=== PATIENT | male | born 1955 | race Caucasian/White ===

== ENCOUNTER → 2021-03-19 10:39 | Outpatient (CLI) | payer OTHER, SELFPAY ==
[2021-03-19 11:08] LABS: Hematocrit 47.6 % (41-53); Hemoglobin 16.4 g/dL (13.5-17.5); Mean Corpuscular HGB Conc 34.5 % (30-36); Mean Corpuscular Hemoglobin 31.5 PG (26-34); Mean Corpuscular Volume 91.2 fL (80-100); Platelet Count 107 X10^3/uL (150-400); Red Blood Cell Count 5.22 X10^6/uL (4.5-5.9); Red Cell Distribution Width 12.8 % (11.6-14.8); White Blood Cell Count 5.5 X10^3/uL (4.5-11.0)
[2021-03-19 11:37] LABS: Vitamin D 25 Hydroxy (D3) 52.2 ng/mL (30.0-100.0)
[2021-03-19 13:20] LABS: BUN Creatinine Ratio 17.6 (6-22); Blood Urea Nitrogen 16 mg/dL (9-20); Calcium 9.3 mg/dL (8.4-10.2); Chloride 99 mmol/L (98-107); Estimated Glomerular Filt Rate > 60.0 mL/min (>60); Glucose 95 mg/dL (80-110); HEMOLYSIS < 15 (0-50); Potassium 4.5 mmol/L (3.4-5.1); Sodium 139 mmol/L (137-145)
[2021-03-19 13:21] LABS: Carbon Dioxide 32 mmol/L (22-32)
[2021-03-19 13:49] LABS: Prostate Specific Antigen 6.36 ng/mL (0.10-4.00)
== END ==
PROVIDERS: PCP Student in an Organized Health Care Education/Training Program; Referring Provider Student in an Organized Health Care Education/Training Program; Visit Provider Student in an Organized Health Care Education/Training Program
DX: D69.6 Thrombocytopenia, unspecified (principal); R97.20 Elevated prostate specific antigen [PSA]; E55.9 Vitamin D deficiency, unspecified; I10 Essential (primary) hypertension
CPT/HCPCS: 36415; 80048; 82306; 84153; 85027

== ENCOUNTER → 2021-05-01 10:46 | Outpatient (CLI) | payer MEDICARE, SELFPAY ==
[2021-05-01 11:32] LABS: Platelet Count 124 X10^3/uL (150-400)
[2021-05-02 10:10] LABS: PSA Free % 15.3 % (.); PSA, Total 6.4 ng/mL (0.0-4.0)
== END ==
PROVIDERS: PCP Student in an Organized Health Care Education/Training Program; Referring Provider Student in an Organized Health Care Education/Training Program; Visit Provider Student in an Organized Health Care Education/Training Program
DX: D69.6 Thrombocytopenia, unspecified (principal); R97.20 Elevated prostate specific antigen [PSA]
CPT/HCPCS: 36415; 84153; 84154; 85049

== ENCOUNTER → 2021-10-03 15:05 | Outpatient (CLI) | payer MEDICARE, SELFPAY ==
[2021-10-03 15:29] LABS: Hemoglobin 15.4 g/dL (13.5-17.5); Mean Corpuscular HGB Conc 34.9 % (30-36); Mean Corpuscular Hemoglobin 31.9 PG (26-34); Mean Corpuscular Volume 91.3 fL (80-100); Platelet Count 131 X10^3/uL (150-400); Red Blood Cell Count 4.82 X10^6/uL (4.5-5.9); Red Cell Distribution Width 12.9 % (11.6-14.8); White Blood Cell Count 6.8 X10^3/uL (4.5-11.0)
[2021-10-03 15:45] LABS: Blood Urea Nitrogen 18 mg/dL (9-20); Calcium 8.7 mg/dL (8.4-10.2); Carbon Dioxide 28 mmol/L (22-32); Chloride 101 mmol/L (98-107); Estimated Glomerular Filt Rate > 60 mL/min (>60); Glucose 95 mg/dL (80-110); HEMOLYSIS < 15 (0-50); Potassium 4.4 mmol/L (3.4-5.1); Sodium 137 mmol/L (137-145)
[2021-10-04 08:28] LABS: PSA Free % 13.4 % (.)
== END ==
PROVIDERS: PCP Student in an Organized Health Care Education/Training Program; Referring Provider Student in an Organized Health Care Education/Training Program; Visit Provider Student in an Organized Health Care Education/Training Program
DX: I10 Essential (primary) hypertension (principal); D69.6 Thrombocytopenia, unspecified; R97.20 Elevated prostate specific antigen [PSA]
CPT/HCPCS: 36415; 80048; 84153; 84154; 85027

== ENCOUNTER → 2022-06-07 11:49 | Outpatient (CLI) | payer MEDICARE, SELFPAY ==
--- NOTE | 2022-06-07 11:53 | DI.RAD.S_ITS ---
PROCEDURE: XR SHOULDER RT MIN 2V INDICATIONS: Pain in right shoulder TECHNIQUE: 3 views of the shoulder were acquired. COMPARISON: None. FINDINGS: Bones: No fractures or dislocations. No suspicious bony lesions. Visualized ribs appear intact. Degenerative changes are seen, with subacromial spurring Soft tissues: No suspicious soft tissue calcifications. The visualized lung demonstrates an unremarkable appearance. IMPRESSION: There are degenerative changes seen by plain film. If it would be helpful for clinical management decision making, please consider a dedicated, scheduled shoulder MRI for further evaluation (assuming that there is no contraindication). Dictated by: Thaddeus Estrada M.D. on 06/07/2022 at 11:04 Approved by: Thaddeus Estrada M.D. on 06/07/2022 at 11:05
== END ==
PROVIDERS: PCP Internal Medicine; Referring Provider Internal Medicine; Visit Provider Internal Medicine
DX: M25.511 Pain in right shoulder (principal)
CPT/HCPCS: 73030

== ENCOUNTER 2023-05-26 05:39 | Emergency (ER) | payer MEDICARE, SELFPAY ==
[2023-05-26 05:49] VITALS: BP 185/89; PULSE 79; RESP 19; TEMP 37.2; O2SAT 99; BMI 28.2
[2023-05-26 06:24] LABS: Add Manual Diff / Slide Review NO; Basophils Absolute Auto 100 /uL (0-100); Basophils Percent Auto 1.4 % (0-2); Eosinophils Absolute Auto 100 /uL (0-450); Hematocrit 44.6 % (41-53); Hemoglobin 15.5 g/dL (13.5-17.5); Lymphocytes Absolute Auto 1700 /uL (1100-4500); Lymphocytes Percent Auto 28.6 % (25-40); Mean Corpuscular HGB Conc 34.7 % (30-36); Mean Corpuscular Hemoglobin 30.8 PG (26-34); Mean Corpuscular Volume 88.8 fL (80-100); Monocytes Absolute Auto 600 /uL (0-900); Monocytes Percent Auto 9.9 % (3-14); Neutrophils Absolute Auto 3500 /uL (1500-7000); Neutrophils Percent Auto 58.1 % (50-75); Red Blood Cell Count 5.02 X10^6/uL (4.5-5.9); Red Cell Distribution Width 13.6 % (11.6-14.8)
[2023-05-26 06:33] LABS: INR 0.9 (0.9-1.3); Prothrombin Time 10.2 SECONDS (9.4-12.5)
[2023-05-26 06:35] LABS: PTT Partial Thromboplastin Tim 31 SECONDS (25.1-36.5)
[2023-05-26 06:37] LABS: Platelet Count 9 X10^3/uL (150-400)
[2023-05-26 06:38] LABS: Platelet Estimate Decreased on smear; RBC Morphology Normal Morphology
[2023-05-26 06:41] LABS: Alanine Aminotransferase 43 IU/L (<50); Albumin 4.7 g/dL (3.5-5.0); Albumin Globulin Ratio 1.6 (1.0-2.8); Alkaline Phosphatase 50 U/L (38-126); Aspartate Aminotransferase 38 IU/L (17-59); BUN Creatinine Ratio 20.6 (6-22); Bilirubin Total 0.8 mg/dL (0.2-1.3); Blood Urea Nitrogen 20 mg/dL (9-20); Calcium 9.8 mg/dL (8.4-10.2); Carbon Dioxide 23 mmol/L (22-32); Chloride 102 mmol/L (98-107); Estimated Glomerular Filt Rate > 60 mL/min (>60); Glucose 114 mg/dL (80-110); HEMOLYSIS < 15 (0-50); Potassium 4.6 mmol/L (3.4-5.1); Sodium 136 mmol/L (137-145); Total Protein 7.7 g/dL (6.3-8.2)
--- NOTE | 2023-05-26 07:27 | ED_ITS ---
HPI - Recheck/Abnormal Lab/Rx General Chief Complaint: Recheck/Abnormal Lab/Rx Stated Complaint: low platelets Time Seen by Provider: 05/26/23 05:56 Source: patient Mode of arrival: Ambulatory Limitations: no limitations History of Present Illness HPI narrative: This is a 67-year-old male with history of hypertension, dyslipidemia, thrombocytopenia with known CLL, had been stable with his platelets for several years. Patient states he does not currently follow up with Hematology/Oncologym last visit was in 2018 at [facility]. He does have his platelets checked every 3 months. They were checked yesterday and he got a call that is platelets were 7 from lab draw yesterday. Patient states no inappropriate bleeding or bruising that he is appreciated. No nosebleeds, no hematuria or dark urine, no black or bloody stools. Denies headache. Denies any other symptoms. Patient states he did receive rituximab infusions x4 around 2012. He has received platelets remotely in the past. Patient moved to the area from [place] and currently resides locally. No tobacco, 2 alcoholic drinks daily, no recreational drugs. Dr. Elma Lynne as his primary care. Related Data Previous Rx's Medication Instructions Recorded ketoconazole 2 % shampoo 1 applic topical 2XW #120 mL 03/19/21 doxycycline hyclate 50 mg capsule 50 mg PO DAILY #5 caps 05/22/21 lisinopril 20 mg tablet 20 mg PO DAILY #90 tabs 03/11/22 prednisone 20 mg tablet 60 mg (3 x 20 mg) PO DAILY 7 days 05/26/23 #21 tabs Allergies Allergy/AdvReac Type Severity Reaction Status Date / Time No Known Drug Allergies Allergy Unverified 03/19/21 09:39 Review of Systems Review of Systems ROS Unobtainable: All systems reviewed & are unremarkable except as noted in HPI and below Patient History Medical History Rosacea Right knee pain (~2016) Measles (~1959) Platelet disorder (~2011) Surgical History Anesthesia History of colonoscopy (~2019) Family History Father Cancer Mother Stroke Brother History of heart disease Social History Smoking Status: Never smoker Smoking Status: Never smoker alcohol intake frequency: 0-2 drinks per day Alcohol type: wine Substance Use Type: does not use Exam Narrative Exam Narrative: GENERAL: Alert and oriented x three, well-appearing male in no acute distress. HEENT: Head normocephalic, atraumatic, EOMI, pupils reactive, face symmetric, moist mucous membranes NECK: Supple, full range of motion CARDIOVASCULAR: Regular rate and rhythm without murmurs, rubs or gallops. RESPIRATORY: Breath sounds equal bilaterally, no wheezes rales or rhonchi. ABDOMEN: Soft, nontender. Normoactive bowel sounds all 4 quadrants. No guarding or rebound, rigidity, no mass : No CVA tenderness EXTREMITIES: Normal range of motion, no clubbing or edema. Neurovascularly intact NEUROLOGICAL: Cranial nerves II through XII grossly intact. Moving all extremities SKIN: Warm, dry, no petechiae, no rashes or lesions, no obvious ecchymosis. Initial Vital Signs Initial Vital Signs: Vital Signs Temperature 98.9 F 05/26/23 05:49 Pulse Rate 79 05/26/23 05:49 Respiratory Rate 19 05/26/23 05:49 Blood Pressure 185/89 H 05/26/23 05:49 Pulse Oximetry 99 05/26/23 05:49 Oxygen Delivery Method Room Air 05/26/23 05:49 Course Orders Ordered: Discontinued Medications Methylprednisolone (Methylprednisolone 125 Mg/2 Ml Vial) 125 mg IV NOW ONE Stop: 05/26/23 07:57 Last Admin: 05/26/23 08:02 Dose: 125 mg Documented By: ORAL Vital Signs Vital signs: Vital Signs - 8 hr 05/26/23 11:43 05/26/23 12:04 05/26/23 12:23 Temperature 99.0 F 99.0 F 98.8 F Pulse Rate 60 61 65 Respiratory Rate 18 20 18 Blood Pressure 185/85 H 166/83 H 174/82 H MDM - Recheck/Abnormal Lab/Rx Lab Data 05/26/23 06:06 05/26/23 06:06 Labs: Lab Results 05/26/23 Range/Units 06:06 WBC 6.0 (4.5-11.0) X10^3/uL RBC 5.02 (4.5-5.9) X10^6/uL Hgb 15.5 (13.5-17.5) g/dL Hct 44.6 (41-53) % MCV 88.8 (80-100) fL MCH 30.8 (26-34) PG MCHC 34.7 (30-36) % RDW 13.6 (11.6-14.8) % Plt Count 9 L* (150-400) X10^3/uL Neut % (Auto) 58.1 (50-75) % Lymph % (Auto) 28.6 (25-40) % Marin % (Auto) 9.9 (3-14) % Eos % (Auto) 2.0 (2-4) % Baso % (Auto) 1.4 (0-2) % Neut # (Auto) 3500 (7156-8058) /uL Lymph # (Auto) 1700 (4397-7581) /uL Marin # (Auto) 600 (0-900) /uL Eos # (Auto) 100 (0-450) /uL Baso # (Auto) 100 (0-100) /uL Platelet Estimate Decreased on smear RBC Morphology Normal morphology PT 10.2 (9.4-12.5) SECONDS INR 0.9 (0.9-1.3) APTT 31 (25.1-36.5) SECONDS Sodium 136 L (137-145) mmol/L Potassium 4.6 (3.4-5.1) mmol/L Chloride 102 (98-107) mmol/L Carbon Dioxide 23 (22-32) mmol/L BUN 20 (9-20) mg/dL Creatinine 0.97 (0.66-1.25) mg/dL Estimated GFR > 60 (>60) mL/min BUN/Creatinine Ratio 20.6 (6-22) Glucose 114 H (80-110) mg/dL Calcium 9.8 (8.4-10.2) mg/dL Total Bilirubin 0.8 (0.2-1.3) mg/dL AST 38 (17-59) IU/L ALT 43 (<50) IU/L Alkaline Phosphatase 50 (38-126) U/L Total Protein 7.7 (6.3-8.2) g/dL Albumin 4.7 (3.5-5.0) g/dL Globulin 3.0 (1.7-4.1) g/dL Albumin/Globulin Ratio 1.6 (1.0-2.8) Blood Type O Positive Antibody Screen Negative Imaging Data CT scan - head: Radiologist's Impression: Sergio Byrne??67??M??1955 ? Allergy/Adv: No Known Drug Allergies Close Head CT (Signed) Krunal Bang - 05/26/23 Shoulder X-Ray (Signed) Thaddeus Estrada - 06/07/22 [place] [address] CT Scan Report Signed Patient: Sergio Byrne MR#: [id number] : 1955 Acct:[id number] Age/Sex: 67 / M Date of Service: 05/26/23 Loc: ED Accession Number: [id number] Procedure: CT head/brain wo con Ordering Provider: Echo Campa D.O. PROCEDURE: CT HEAD/BRAIN WO CON INDICATIONS: 9 platelets, r/o spontaneous bleed TECHNIQUE: Noncontrast 4.5 mm thick angled axial sections acquired from the foramen magnum to the vertex, with coronal and sagittal reformats. For radiation dose reduction, the following was used: automated exposure control, adjustment of mA and/or kV according to patient size. COMPARISON: None. FINDINGS: Image quality: Diagnostic. CSF spaces: Basal cisterns are patent. No extra-axial fluid collections. Ventricles are normal in size and shape. Brain: No midline shift. No intracranial masses or hemorrhage. No area of hypodensity in a large vascular distribution to suggest acute infarction. Periventricular hypodensity consistent with chronic microvascular ischemic change. Skull and face: Calvarium and visualized facial bones are intact, without suspicious lesions. Sinuses: Visualized sinuses and mastoids are clear. IMPRESSION: No acute intracranial abnormality. Dictated by: Krunal Bang M.D. on 05/26/2023 at 7:57 Approved by: Krunal Bang M.D. on 05/26/2023 at 7:59 MDM Narrative Medical decision making narrative: Spoke with Hematology/Oncology Dr. Howell, patient's platelets are 9, otherwise his white count and hemoglobin are appropriate the rest of his labs including his CMP are appropriate. Coags are normal as well. Patient has not had any complaints of headache but platelets are below 10 and is high-risk for spontaneous bleed. Head CT is negative. He recommends adding prednisone 1 mg per kg for 1st dose and 60 mg once daily, patient is to call the office to set up an appointment set up a taper and based on levels will potentially restart rituximab. Patient is to call office today or tomorrow to set up follow-up appointment. Patient received platelets, tolerated them well. Discussed plan for follow up, repeat labs in the next day or 2 and patient is to have all reach out to the oncology office to follow up with Dr. Howell. Discussed return precautions all questions answered. Discharge Plan Departure Patient Disposition: Home Clinical Impression: Thrombocytopenia Activity Restrictions/Additional Instructions: Please call Dr. Escobar office to set up follow up with Hematology/Oncology. Call today or tomorrow. Also contact your primary care physician Dr. Lynne, she can also order repeat CBC to check your platelets in the next 1-2 days to make sure that they are staying in an appropriate range. Take steroids once daily, they will continue to monitor your levels and a taper your steroids as needed. Dependent on your platelet levels you maybe restarted on rituximab. Prescription for steroids was sent to [facility] in [place]. Please return for severe headaches, inappropriate bleeding or bruising, lightheadedness or passing out, chest pain or shortness of breath, black or bloody stools, nosebleeds, bloody urine or other new or concerning changes. Prescriptions: New prednisone 20 mg tablet 60 mg PO DAILY 7 Days Qty: 21 0RF No Action doxycycline hyclate 50 mg capsule 50 mg PO DAILY Qty: 5 2RF lisinopril 20 mg tablet 20 mg PO DAILY Qty: 90 0RF ketoconazole 2 % shampoo 1 applic topical 2XW Qty: 120 1RF Referrals: Grant Escobar MD [Physician] - Elma Lynne MD [Primary Care Provider] - Stand Alone Forms: Patient Portal/API
[2023-05-26] MEDS: methylPREDNISolone 125 MG/2 ML VIAL IV (08:02)
[2023-05-26 08:06] VITALS: BP 124/78; PULSE 51; O2SAT 98
[2023-05-26 11:43] VITALS: BP 185/85; PULSE 60; RESP 18; TEMP 37.2
[2023-05-26 12:04] VITALS: BP 166/83; PULSE 61; RESP 20; TEMP 37.2
[2023-05-26 12:23] VITALS: BP 174/82; PULSE 65; RESP 18; TEMP 37.1
== END 2023-05-26 12:33 | disposition home or self-care (01) ==
PROVIDERS: Emergency Medicine; Emergency Provider Emergency Medicine; PCP Internal Medicine
DX: D69.6 Thrombocytopenia, unspecified (principal)
CPT/HCPCS: 36415; 36430; 70450; 80053; 85025; 85610; 85730; 86850; 86900; 86901; 96374; 99284; 99285; J2930; P9035

== ENCOUNTER → 2023-11-03 08:15 | Outpatient (CLI) | payer MEDICARE, SELFPAY ==
--- NOTE | 2023-11-03 08:16 | DI.MRI.S_ITS ---
PROCEDURE: MR PELIS WO/W CON INDICATIONS: Malignant neoplasm of rectum TECHNIQUE: Coronal HASTE, sagittal T2 FSE, axial T1 FSE, axial and coronal nonbreath-hold T2 FSE. Axial dynamic VIBE during administration of contrast. Post-contrast axial and coronal VIBE/2-D FLASH with fat saturation from the iliac crests to the symphysis. Optional diffusion weighted imaging and ADC may be performed. COMPARISON: [facility], CT, CT CHEST ABDOMEN PELVIS WITH CONTRAST, 10/23/2023, 10:51. FINDINGS: Image quality: Excellent. Rectum: Morphology: Semi circumferential Clock face of tumor involvement: 1:00 o'clock-7:00 o'clock Mucinous (high T2 signal): No Craniocaudal length: 5.2 cm, (2/33). Distance to anal verge: 5.8 cm, (2/34). Distance to top of sphincter complex/anorectal junction: 3.1 cm, (2/34). Relationship to anterior peritoneal reflection: Straddles Tumor at or below puborectalis sling: No T staging: Depth of extramural invasion: 4 mm. , (3/40, 36). Extramural vascular invasion: Possible posterior vessel seen at 5:00 o'clock, (). T3 tumors only: distance to mesorectal fascia (circumferential resection margin): 1.4 cm Pelvic organ involvement: Genitourinary: None. Pelvic sidewall (obturator internus, piriformis, ischiococcygeus muscles): None Pelvic floor (pubococcygeus, iliococcygeus, puborectalis, levator plate): None Sacrum: None Vessels (internal and external iliac arteries and veins): Questionable EMVI as described above Nerves (lumbosacral nerve roots): None Regional lymph nodes (mesorectal, inguinal, iliac): Several small lymph nodes. For example: -Left posterior mesorectal measuring 0.6 cm, (3/34). -Left posterior mesorectal measuring 0.8 cm, (3/31). -Right superior rectal node measuring 0.8 cm, (3/22). Other bowel and peritoneum: No pathologic free pelvic fluid. More proximal colon and small bowel loops are normal in caliber. Diverticulosis. Prostatomegaly. Probable small fat containing inguinal hernias. Bones: Marrow signal is heterogeneous. IMPRESSION: 1. Upper rectal malignancy. T3b. Possible EMVI. 2. Highly suspicious mesorectal and superior rectal lymph nodes. 3. Heterogeneous appearance of the bone marrow. Lower suspicion for metastatic disease. Bone scan could be considered for further evaluation. Dictated by: Krunal Bang M.D. on 11/03/2023 at 11:41 Approved by: Krunal Bang M.D. on 11/03/2023 at 12:07
== END ==
LOC: MRI 08:15
PROVIDERS: PCP Internal Medicine; Referring Provider Internal Medicine Hematology & Oncology; Visit Provider Internal Medicine Hematology & Oncology
DX: C20 Malignant neoplasm of rectum (principal); D69.6 Thrombocytopenia, unspecified; R59.0 Localized enlarged lymph nodes; K57.90 Diverticulosis of intestine, part unspecified, without perforation or abscess without bleeding; N40.0 Benign prostatic hyperplasia without lower urinary tract symptoms
CPT/HCPCS: 72197; A9579

== ENCOUNTER → 2023-12-13 09:16 | Outpatient (CLI) | payer MEDICARE, SELFPAY ==
--- NOTE | 2023-12-13 | DI.MRI.S_ITS ---
PROCEDURE: MR PELVIC PROSTATE PROTOCOL INDICATIONS: CANCER OF RECTUM TECHNIQUE: Coronal HASTE, axial T1 FSE with fat saturation, 3-plane nonbreath-hold T2 FSE. After the administration of contrast, dynamic axial, delayed axial and coronal VIBE or 2-D FLASH with fat saturation through the pelvis. Diffusion weighted imaging and ADC was performed. COMPARISON: [facility], MR, MR PELVIS WO/W CON, 11/03/2023, 8:29. [facility], CT, CT CHEST ABDOMEN PELVIS WITH CONTRAST, 10/23/2023, 10:51. FINDINGS: Image quality: Diffusion weighted and dynamic contrast enhanced images are diagnostic. Prostate: Gland size is 6.3 x 5.1 x 4.1 cm; ellipsoid gland volume is 69 mL. Numerous BPH nodules. No significant intrinsic T1 hyperintense foci to suggest hemorrhage. No significant areas of ADC hypointensity in the peripheral zone. No suspicious foci of the T2 hypointense signal in the transitional zone. No PI-RADS 4 or 5 observations. Genitourinary system: Bladder wall thickness is normal. Distal ureters are non distended. Bowel and peritoneum: No pathologic free pelvic fluid. Rectal mass previously described on recent rectal MRI, similar in the short-term. Nodes and vessels: Small mesorectal and superior rectal lymph nodes are again seen. Iliac vessels are normal in caliber. Soft tissues: Small fat containing inguinal hernias. Bones: Heterogeneous appearance of the bone marrow.. IMPRESSION: 1. Prostatomegaly with multiple BPH nodules. 2. No PI-RADS 4 or 5 observations. 3. Superior rectal mass is unchanged in the short-term interval. 4. Small mesorectal and superior rectal lymph nodes are again seen. Dictated by: Krunal Bang M.D. on 12/14/2023 at 16:29 Approved by: Krunal Bang M.D. on 12/14/2023 at 16:45
== END ==
LOC: MRI 09:18
PROVIDERS: PCP Internal Medicine; Referring Provider Radiology Radiation Oncology; Visit Provider Radiology Radiation Oncology
DX: C20 Malignant neoplasm of rectum (principal); N40.2 Nodular prostate without lower urinary tract symptoms; R59.0 Localized enlarged lymph nodes
CPT/HCPCS: 72197; A9579

== ENCOUNTER → 2024-02-27 10:44 | Outpatient (CLI) | payer MEDICARE, SELFPAY ==
--- NOTE | 2024-02-27 | DI.MRI.S_ITS ---
PROCEDURE: MR PELIS WO/W CON INDICATIONS: RECTAL CANCER TECHNIQUE: Coronal HASTE, sagittal T2 FSE, axial T1 FSE, axial and coronal nonbreath-hold T2 FSE. Axial dynamic VIBE during administration of contrast. Post-contrast axial and coronal VIBE/2-D FLASH with fat saturation from the iliac crests to the symphysis. Optional diffusion weighted imaging and ADC may be performed. COMPARISON: [facility], , MR PELVIS WO/W CON, 11/03/2023, 8:29. FINDINGS: Image quality: Excellent. Bowel and peritoneum: There is persistent thickening of the low to mid rectum. There is mural enhancement with wall stratification of this thickened segment, but no restricted diffusion to suggest residual disease. Genitourinary system: Bladder wall is normal in thickness. Distal ureters are non distended. Nodes and vessels: Persistent enlarged, round lymph node measuring 6 millimeter short axis, with heterogeneous T2 signal. Soft tissues: No inguinal hernias. Bones: Marrow is normal in overall signal. IMPRESSION: Posttreatment changes of the mid to lower rectum, without primary malignancy. No restricted diffusion. Suspicious mesorectal lymph node measuring 6 millimeter short axis, similar in size and imaging characteristics compared with prior. No pelvic chain lymphadenopathy. Dictated by: Jose Hunt M.D. on 02/29/2024 at 9:39 Approved by: Jose Hunt M.D. on 02/29/2024 at 9:50
== END ==
PROVIDERS: PCP Internal Medicine; Referring Provider Nurse Practitioner; Visit Provider Nurse Practitioner
DX: C20 Malignant neoplasm of rectum (principal); R59.0 Localized enlarged lymph nodes
CPT/HCPCS: 72197; A9579

== ENCOUNTER → 2024-03-07 08:25 | Outpatient (CLI) | payer MEDICARE, SELFPAY ==
--- NOTE | 2024-03-07 | DI.CT.S_ITS ---
PROCEDURE: CT CHEST ABD PEL W CON INDICATIONS: Malignant neoplasm of rectum TECHNIQUE: After the administration of intravenous contrast, 5 mm thick sections acquired from the lung apices to the symphysis. 5 mm coronal and sagittal reformats were performed, with additional 7 mm MIP reformats through the lungs. For radiation dose reduction, the following was used: automated exposure control, adjustment of mA and/or kV according to patient size. COMPARISON: [facility], CT, CT CHEST ABDOMEN PELVIS WITH CONTRAST, 10/23/2023, 10:51. [facility], MR, MR PELVIS WO/W CON, 02/27/2024, 10:54. FINDINGS: Image quality: Excellent. CHEST: Lower Neck: No enlarged lymph nodes. Thyroid: No thyroid nodules which require sonographic follow up, per consensus guidelines. Axillae: No enlarged lymph nodes. Chest Wall: Unremarkable. Lungs and Pleura: No pneumothorax or pleural effusions. Punctate right lobe nodule series 5, image 231, unchanged. No new nodules. Heart: Heart size is normal. No pericardial effusion. Thoracic Vessels: The aorta and pulmonary arteries demonstrate normal size. Mediastinum and Britney: No enlarged lymph nodes. Esophagus: No wall thickening. Minimal hiatal hernia. ABDOMEN: Liver: No solid mass. Steatosis. Gallbladder: No radiopaque gallstones or wall thickening. Biliary ducts: No biliary dilation. Pancreas: No ductal dilation. Spleen: Size is within normal limits. Adrenal Glands: No adrenal nodules. Kidneys and Ureters: No hydronephrosis. No solid mass. No complex renal cystic lesion which requires follow up. Stomach and Bowel: Parents of thickening at the rectum likely reflective of post treatment change. No distinct nodule. Diverticula without inflammatory change. Peritoneum: No abnormal intraperitoneal fluid. No free air. Ventral Wall: No significant ventral hernia. Abdominal Nodes: No retroperitoneal or mesenteric adenopathy by size criteria. Vessels: Aorta and inferior vena cava are normal in size. PELVIS: Pelvic Organs: Prostate is enlarged. Bladder: No bladder wall thickening, accounting for underdistention. Pelvic Nodes: No enlarged lymph nodes. Previous lymph nodes are unchanged. Right pelvic sidewall node measuring 6 mm compared to 7 mm series 2, image 170. 7 mm left periaortic lymph node series 2 image 152, unchanged. Previous superior rectal lymph node measuring 7 mm is not well identified on current exam. 6 mm left perirectal lymph node identified on MRI of 02/27/2024 is seen on series 2, image 190. It is unchanged. Miscellaneous: No inguinal hernias are seen. Bones: No aggressive osseous abnormality. IMPRESSION: Previously identified scattered subcentimeter abdominal and pelvic lymph nodes are unchanged. Mild persistent thickening the rectum likely reflective post treatment change. No distinct mass. Dictated by: Misty Estes M.D. on 03/07/2024 at 21:50 Approved by: Misty Estes M.D. on 03/07/2024 at 21:57
== END ==
PROVIDERS: PCP Internal Medicine; Referring Provider Nurse Practitioner; Visit Provider Nurse Practitioner
DX: C20 Malignant neoplasm of rectum (principal); N40.0 Benign prostatic hyperplasia without lower urinary tract symptoms; K57.90 Diverticulosis of intestine, part unspecified, without perforation or abscess without bleeding; R91.1 Solitary pulmonary nodule; K76.0 Fatty (change of) liver, not elsewhere classified
CPT/HCPCS: 71260; 74177; Q9967

== ENCOUNTER → 2024-06-06 07:56 | Outpatient (CLI) | payer MEDICARE, SELFPAY ==
--- NOTE | 2024-06-06 | DI.CT.S_ITS ---
PROCEDURE: CT CHEST ABD PEL W CON INDICATIONS: rectal cancer TECHNIQUE: After the administration of intravenous contrast, 5 mm thick sections acquired from the lung apices to the symphysis. 5 mm coronal and sagittal reformats were performed, with additional 7 mm MIP reformats through the lungs. For radiation dose reduction, the following was used: automated exposure control, adjustment of mA and/or kV according to patient size. COMPARISON: [facility], CT, CT CHEST ABDOMEN PELVIS WITH CONTRAST, 10/23/2023, 10:51. [facility], MR, MR PELVIS WO/W CON, 02/27/2024, 10:54. [facility], CT, CT CHEST ABD PEL W CON, 03/07/2024, 9:35. FINDINGS: Image quality: Excellent. CHEST: Lower Neck: No enlarged lymph nodes. Thyroid: No thyroid nodules which require sonographic follow up, per consensus guidelines. Axillae: No enlarged lymph nodes. Chest Wall: Right-sided port with the catheter tip at the cavoatrial junction. Lungs and Pleura: No pneumothorax or pleural effusions. No consolidation or suspicious nodules. Heart: Heart size is normal. Three-vessel coronary artery calcifications. No pericardial effusion. Thoracic Vessels: The aorta and pulmonary arteries demonstrate normal size. Mediastinum and Britney: No enlarged lymph nodes. Esophagus: No wall thickening. No hiatal hernia. ABDOMEN: Liver: No solid mass. Small hypodensity in the left lobe of the liver, (2/101), unchanged. Gallbladder: No radiopaque gallstones or wall thickening. Biliary ducts: No biliary dilation. Pancreas: No ductal dilation. Spleen: Size is within normal limits. Adrenal Glands: No adrenal nodules. Kidneys and Ureters: No hydronephrosis. No solid mass. No complex renal cystic lesion which requires follow up. Stomach and Bowel: No mass appreciated. Diverticulosis. Normal appendix. No small bowel obstruction. Stomach is decompressed. Peritoneum: No abnormal intraperitoneal fluid. No free air. Ventral Wall: No significant ventral hernia. Abdominal Nodes: No retroperitoneal or mesenteric adenopathy by size criteria. Vessels: Aorta and inferior vena cava are normal in size. Calcified plaque. PELVIS: Pelvic Organs: Prostatomegaly. Bladder: No bladder wall thickening. Pelvic Nodes: No enlarged lymph nodes. Miscellaneous: No inguinal hernias are seen. Bones: No aggressive osseous abnormality. IMPRESSION: 1. No mass or enlarged lymph nodes seen. 2. No definite metastatic disease. Hypodense focus in the left liver, unchanged. Recommend attention on follow-up scans. If clinically indicated MRI liver could be considered. 3. Lungs are clear. Dictated by: Krunal Bang M.D. on 06/06/2024 at 17:42 Approved by: Krunal Bang M.D. on 06/06/2024 at 17:55
[2024-06-06 08:34] LABS: Estimated Glomerular Filt Rate > 60 mL/min (>60)
--- NOTE | 2024-06-06 10:11 | DI.MRI.S_ITS ---
PROCEDURE: MR PELIS WO/W CON INDICATIONS: rectal cancer TECHNIQUE: Coronal HASTE, sagittal T2 FSE, axial T1 FSE, axial and coronal nonbreath-hold T2 FSE. Axial dynamic VIBE during administration of contrast. Post-contrast axial and coronal VIBE/2-D FLASH with fat saturation from the iliac crests to the symphysis. Optional diffusion weighted imaging and ADC may be performed. COMPARISON: [facility], MR, MR PELVIS WO/W CON, 11/03/2023, 8:29. [facility], CT, CT CHEST ABD PEL W CON, 06/06/2024, 9:15. [facility], MR, MR PELVIS WO/W CON, 02/27/2024, 10:54. FINDINGS: Image quality: Excellent. Rectum: Morphology: Semi circumferential Clock face of tumor involvement: Left 12:00-6:00 o'clock. Most pronounced at 8:00 o'clock. Mucinous (high T2 signal): No Craniocaudal length: 4.9 cm Distance to anal verge: 7.1 cm Distance to top of sphincter complex/anorectal junction: 3.7 cm Relationship to anterior peritoneal reflection: Below Tumor at or below puborectalis sling: No T staging: Depth of extramural invasion: Not seen Extramural vascular invasion: Not seen T3 tumors only: distance to mesorectal fascia (circumferential resection margin): 1 cm Pelvic organ involvement: Genitourinary: None. Prostatomegaly. Pelvic sidewall (obturator internus, piriformis, ischiococcygeus muscles): None Pelvic floor (pubococcygeus, iliococcygeus, puborectalis, levator plate): None Sacrum: None Vessels (internal and external iliac arteries and veins): None Nerves (lumbosacral nerve roots): None Regional lymph nodes (mesorectal, inguinal, iliac): Left mesorectal lymph node measuring 0.3 cm, (13/62), previously 0.6 cm. Other bowel and peritoneum: Presacral edema. More proximal colon and small bowel loops are normal in caliber. Diverticulosis. Bones: Marrow is heterogeneous. IMPRESSION: 1. Mild residual mid rectal wall thickening. No suspicious enhancement or restricted diffusion. 2. Left mesorectal lymph node is decreased in size. Dictated by: Krunal Bang M.D. on 06/06/2024 at 17:57 Approved by: Krunal Bang M.D. on 06/06/2024 at 18:23
== END ==
PROVIDERS: Radiology Diagnostic Radiology; PCP Internal Medicine
DX: C20 Malignant neoplasm of rectum (principal); I25.10 Atherosclerotic heart disease of native coronary artery without angina pectoris; K57.90 Diverticulosis of intestine, part unspecified, without perforation or abscess without bleeding; N40.0 Benign prostatic hyperplasia without lower urinary tract symptoms
CPT/HCPCS: 36415; 71260; 72197; 74177; 82565; A9579; Q9967

== ENCOUNTER 2024-08-14 10:54 | Inpatient (IN) | payer MEDICARE, SELFPAY ==
[2024-08-14] VITALS (36 sets, daily range): BP systolic 98–162; BP diastolic 55–84; PULSE 78–118; RESP 16–24; TEMP 36.9–39.8; O2SAT 91–98; BMI 26.2; BMI 26.4
--- NOTE | 2024-08-14 11:19 | DI.RAD.S_ITS ---
PROCEDURE: XR CHEST 1V INDICATIONS: suspected sepsis TECHNIQUE: One view of the chest was acquired. COMPARISON: None. FINDINGS: Surgical changes and devices: Right chest port with tip in the superior cavoatrial junction. Lungs and pleura: Lungs are clear. No pleural effusions or pneumothorax. Mediastinum: Mediastinal contours appear normal. Heart size is normal. Bones and chest wall: No suspicious bony lesions. Overlying soft tissues appear unremarkable. IMPRESSION: No acute cardiopulmonary abnormality is seen. Dictated by: Rafa Pelayo M.D. on 08/14/2024 at 11:07 Approved by: Rafa Pelayo M.D. on 08/14/2024 at 11:11
--- NOTE | 2024-08-14 11:41 | EKG_ITS ---
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
[2024-08-14] MEDS: ACETAMINOPHEN 325 MG TABLET 975 MG PO (11:49)
[2024-08-14] MEDS: ONDANSETRON 4 MG/2 ML INJ IV (11:49)
[2024-08-14] MEDS: SODIUM CHLORIDE 0.9% 1,000 ML 1000 ML IV ×2 (11:49→12:45)
[2024-08-14 11:56] LABS: Hematocrit 43.5 % (41-53); Hemoglobin 15.1 g/dL (13.5-17.5); Mean Corpuscular HGB Conc 34.8 % (30-36); Mean Corpuscular Hemoglobin 34.5 PG (26-34); Mean Corpuscular Volume 99.3 fL (80-100); Platelet Count 143 X10^3/uL (150-400); Red Blood Cell Count 4.38 X10^6/uL (4.5-5.9); Red Cell Distribution Width 13.2 % (11.6-14.8)
[2024-08-14 12:01] LABS: INR 1.3 (0.9-1.3); Prothrombin Time 14.9 SECONDS (9.4-12.5)
[2024-08-14 12:04] LABS: PTT Partial Thromboplastin Tim 33 SECONDS (25.1-36.5)
[2024-08-14 12:05] LABS: Add Manual Diff / Slide Review YES; White Blood Cell Count 30.5 X10^3/uL (4.5-11.0)
[2024-08-14 12:06] LABS: Alanine Aminotransferase 38 IU/L (<50); Albumin 4.3 g/dL (3.5-5.0); Albumin Globulin Ratio 1.4 (1.0-2.8); Alkaline Phosphatase 61 U/L (38-126); Aspartate Aminotransferase 47 IU/L (17-59); BUN Creatinine Ratio 12.6 (6-22); Bilirubin Total 1.1 mg/dL (0.2-1.3); Blood Urea Nitrogen 21 mg/dL (9-20); Calcium 9.2 mg/dL (8.4-10.2); Carbon Dioxide 17 mmol/L (22-32); Chloride 97 mmol/L (98-107); Estimated Glomerular Filt Rate 44 mL/min (>60); Globulin 3.1 g/dL (1.7-4.1); Glucose 161 mg/dL (80-110); HEMOLYSIS 30 (0-50); Lipase 41 U/L (23-300); Potassium 3.8 mmol/L (3.4-5.1); Sodium 129 mmol/L (137-145); Total Protein 7.4 g/dL (6.3-8.2)
[2024-08-14 12:13] LABS: Neutrophils Absolute Manual 28365 /uL (3000-5900); RBC Morphology Normal Morphology; Total Cells Counted 100
[2024-08-14 12:22] LABS: Procalcitonin 6.28 ng/mL (<0.5)
--- NOTE | 2024-08-14 12:24 | ED_ITS ---
HPI - Fever General Chief Complaint: Fever Stated Complaint: Issues after surgery Time Seen by Provider: 08/14/24 11:36 Source: patient, family (), RN notes reviewed and old records reviewed Mode of arrival: Family Vehicle Limitations: no limitations History of Present Illness HPI Narrative: 68-year-old male history of hypertension, rectal cancer has received chemotherapy but no radiation had a colon resection with diverting ileostomy on 08/02/[address] Meeks at [facility]. In the past few days patient has had intermittent fevers. His noted that today he seems confused little bit off, had an accident while trying to change his ileostomy, had an episode of urinary incontinence. She states he just seems mildly confused. Febrile here in the department. Patient denies any pain, no headaches no neck pain, no back pain, no abdominal back or flank pain. No shortness of breath. No nausea or vomiting. He was had stool output with a his ileostomy they describe it as watery. Had very dark stool the Thursday after his surgery which he had been in the 05 of August. No black or bloody stools otherwise. He denies any urinary symptoms but did have an episode of urinary incontinence here. No dysuria urgency sensation. They note a little bit of rash in his inner thigh where the tape from his prior Emmanuel catheter was. No new swelling of extremities. Patient has been able to ambulate. Patient notes he had 12 rounds of chemo last was 2 months ago, no radiation. Pathology was reported negative for margins on his ileostomy. Patient is taking lisinopril, gabapentin, Soma, atorvastatin, doxycycline, prednisone and a multivitamin. He was supposed to be taking Eliquis but was switched over to Lovenox. He has been doing Lovenox injections in the past day. Patient follows with Dr. Irma Meeks is his surgeon. Dr. Elma Lynne is his primary care physician. His oncologist is through [facility] and has not in the majority of his regular maintenance. He was accompanied by his . Related Data Previous Rx's Medication Instructions Recorded ketoconazole 2 % shampoo 1 applic topical 2XW #120 mL 03/19/21 doxycycline hyclate 50 mg capsule 50 mg PO DAILY #5 caps 05/22/21 lisinopril 20 mg tablet 20 mg PO DAILY #90 tabs 03/11/22 Allergies Allergy/AdvReac Type Severity Reaction Status Date / Time No Known Drug Allergies Allergy Verified 08/14/24 11:53 Review of Systems Review of Systems ROS Unobtainable: All systems reviewed & are unremarkable except as noted in HPI and below Patient History Medical History Measles (~1959) Platelet disorder (~2011) Rectal cancer Right knee pain (~2016) Rosacea Surgical History (Updated 08/14/24 @ 17:30 by Echo Campa DO) Anesthesia History of colonoscopy (~2019) Family History Father Cancer Mother Stroke Brother History of heart disease Social History Smoking Status: Never smoker Smoking Status: Never smoker alcohol intake frequency: 0-2 drinks per day Alcohol type: wine Exam Narrative Exam Narrative: GEN: well nourished, well appearing male, alert and oriented x 3, patient does not appear particularly confused but notes that he gets occasional answers wrong, patient appears to be in mild distress. HEENT: Atraumatic, pupils are equal round reactive to light, extraocular movements are intact, nares are clear, TMs are clear with no fluid, there is no conjunctival pallor. Throat is clear without any exudates, erythema, tonsillar enlargement or uvular deviation, no facial droop HEART: Regular rate and rhythm without murmur, clicks, rubs. pulses are equal in upper and lower extremities. No edema bilateral upper or lower extremities. LUNGS:Lungs clear to auscultation, no wheezes, rales, crackles, chest moves symmetrically, no tachypnea accessory muscle ABD:bowel sounds normal, soft, non-tender, patient has a appears to be ileostomy in the right, there some liquidy brown stool in the bag, no guarding, rebound, rigidity, no masses noted, no hepatosplenomegaly :No CVA tenderness MSCL: Non-tender, no muscle atrophy, muscles strength 5/5 upper and lower extremities, full range of motion NEURO:CN 2-12 intact, sensation normal SKIN: Patient has a small about 2 x 2 cm area of erythema with slight blistering at the right inner thigh consistent with the shape and location of where a Emmanuel catheter sticker/connect her device would have been. Patient was family state that that was what was present there. No other rash or skin changes noted. Initial Vital Signs Initial Vital Signs: Vital Signs Temperature 100.7 F H 08/14/24 11:09 Pulse Rate 115 H 08/14/24 11:09 Respiratory Rate 17 08/14/24 11:09 Blood Pressure 116/55 L 08/14/24 11:09 Pulse Oximetry 95 08/14/24 11:09 Oxygen Delivery Method Room Air 08/14/24 11:09 Course Orders Ordered: ED Orders 08/14/24 11:10 Covid-19 + FLU A/B + RSV - PCR Stat GI Panel (Film Array) Stat 08/14/24 11:19 XR chest 1V Stat EKG-12 Lead Stat RT Consult Eval and Treat NOW 08/14/24 11:40 Complete Blood Count AUTO DIFF Stat Comprehensive Metabolic Panel Stat Lactate (Lactic Acid) Stat Lipase Stat PTT Partial Thromboplastin Alexy Stat Pathologist Review (for CBC) Stat Procalcitonin Stat Prothrombin Time INR Stat 08/14/24 12:23 Blood Culture Stat 08/14/24 12:54 CT abdomen pelvis w con Stat 08/14/24 13:09 CT angio chest PE protocol Stat 08/14/24 14:20 Urine Culture Stat Urine Microscopic Stat Acetaminophen (Acetaminophen 325 Mg Tablet) 650 mg PO Q6H PRN PRN Reason: Fever/Mild Pain (1-3) Hydrocodone Bitart/Acetaminophen (Hydrocodone/Acet 5/325 Tablet) 1 tab PO Q4H PRN PRN Reason: Pain, Moderate (4-6) Enoxaparin Sodium (Enoxaparin 40 Mg/0.4 Ml Syringe) 40 mg SUBCUT DAILY [facility] Hydromorphone HCl (Hydromorphone 0.5 Mg Inj) 0.5 mg IV Q2H PRN PRN Reason: Pain, Severe (7-10) Vancomycin HCl/Dextrose (Vancomycin) 1,500 mg in 300 mls @ 200 mls/hr IV Q24H [facility] Last Infusion: 08/14/24 15:19 Dose: Infused Documented By: Admin: 08/14/24 13:48 Dose: 200 mls/hr Documented By: SHI Dextrose/Sodium Chloride (Dextrose 5%-0.45% Ns) 1,000 mls @ 100 mls/hr IV CONT ERIKA Piperacillin Sod/Tazobactam (Sod 3.375 gm/ Sodium Chloride) 100 mls @ 25 mls/hr IV Q8H ERIKA Naloxone HCl (Naloxone 0.4 Mg/Ml Vial) 0.2 mg IV Q2MIN PRN PRN Reason: Opiate Reversal Ondansetron HCl (Ondansetron 4 Mg Odt) 4 mg SL NOW PRN PRN Reason: Nausea And Vomiting Ondansetron HCl (Ondansetron 4 Mg/2 Ml Inj) 4 mg IV Q8HR PRN PRN Reason: Nausea And Vomiting Discontinued Medications Acetaminophen (Acetaminophen 325 Mg Tablet) 975 mg PO NOW ONE Stop: 08/14/24 11:37 Last Admin: 08/14/24 11:49 Dose: 975 mg Documented By: VIVIAN Sodium Chloride (Normal Saline 0.9%) 1,000 mls @ 1,000 mls/hr IV BOLUS ONE Stop: 08/14/24 12:18 Last Infusion: 08/14/24 12:46 Dose: Infused Documented By: Admin: 08/14/24 11:49 Dose: 1,000 mls/hr Documented By: VIVIAN Sodium Chloride (Normal Saline 0.9%) 1,000 mls @ 1,000 mls/hr IV BOLUS ONE Stop: 08/14/24 12:35 Last Infusion: 08/14/24 13:49 Dose: Infused Documented By: Admin: 08/14/24 12:45 Dose: 1,000 mls/hr Documented By: SHI Piperacillin Sod/Tazobactam (Sod 4.5 gm/ Sodium Chloride) 100 mls @ 200 mls/hr IV NOW ONE Stop: 08/14/24 13:13 Last Infusion: 08/14/24 14:08 Dose: Infused Documented By: Admin: 08/14/24 13:33 Dose: 200 mls/hr Documented By: SHI Sodium Chloride (Normal Saline 0.9%) 2,466 mls @ 822 mls/hr 30 ml/kg infuse over 3 hr (2466 ml) IV NOW ONE Stop: 08/14/24 16:11 Last Infusion: 08/14/24 14:08 Dose: Infused Documented By: Admin: 08/14/24 13:28 Dose: 822 mls/hr Documented By: SHI Ondansetron HCl (Ondansetron 4 Mg/2 Ml Inj) 4 mg IV NOW PRN PRN Reason: Nausea And Vomiting Last Admin: 08/14/24 11:49 Dose: 4 mg Documented By: VIVIAN Vital Signs Vital signs: Vital Signs - 8 hr 08/14/24 11:09 08/14/24 12:51 08/14/24 12:53 Temperature 100.7 F H 100.4 F H Pulse Rate 115 H 83 Respiratory Rate 17 19 Blood Pressure 116/55 L Pulse Oximetry 95 93 Oxygen Delivery Method Room Air 08/14/24 13:00 08/14/24 13:00 08/14/24 13:15 Temperature Pulse Rate 84 Respiratory Rate 19 Blood Pressure 100/58 L 101/57 L Pulse Oximetry 96 Oxygen Delivery Method 08/14/24 13:15 08/14/24 13:33 08/14/24 13:35 Temperature Pulse Rate 80 79 79 Respiratory Rate 17 Blood Pressure Pulse Oximetry 95 98 Oxygen Delivery Method 08/14/24 13:35 08/14/24 13:45 08/14/24 13:45 Temperature Pulse Rate 78 Respiratory Rate 24 Blood Pressure 114/56 L 115/58 L Pulse Oximetry 98 Oxygen Delivery Method 08/14/24 14:00 08/14/24 14:00 08/14/24 14:05 Temperature 98.6 F Pulse Rate 78 Respiratory Rate 18 Blood Pressure 132/61 Pulse Oximetry 97 Oxygen Delivery Method 08/14/24 14:08 08/14/24 14:15 08/14/24 14:15 Temperature 98.6 F Pulse Rate 81 Respiratory Rate 19 Blood Pressure 148/67 H Pulse Oximetry 91 Oxygen Delivery Method 08/14/24 14:30 08/14/24 14:30 08/14/24 14:45 Temperature Pulse Rate 84 Respiratory Rate 24 Blood Pressure 143/74 H 138/57 L Pulse Oximetry 95 Oxygen Delivery Method 08/14/24 14:45 08/14/24 15:00 08/14/24 15:00 Temperature Pulse Rate 86 96 H Respiratory Rate 21 22 Blood Pressure 162/70 H Pulse Oximetry 96 94 Oxygen Delivery Method Room Air 08/14/24 15:22 08/14/24 15:22 08/14/24 15:30 Temperature Pulse Rate 95 H Respiratory Rate 23 Blood Pressure 125/56 L 120/59 L Pulse Oximetry 93 Oxygen Delivery Method 08/14/24 15:30 08/14/24 15:45 08/14/24 15:45 Temperature Pulse Rate 91 H 97 H Respiratory Rate 21 23 Blood Pressure 124/60 Pulse Oximetry 98 96 Oxygen Delivery Method 08/14/24 16:00 08/14/24 16:00 08/14/24 16:15 Temperature Pulse Rate 104 H Respiratory Rate 22 Blood Pressure 139/67 112/55 L Pulse Oximetry 95 Oxygen Delivery Method 08/14/24 16:15 08/14/24 16:30 08/14/24 16:30 Temperature Pulse Rate 102 H 104 H Respiratory Rate 24 24 Blood Pressure 110/56 L Pulse Oximetry 95 95 Oxygen Delivery Method 08/14/24 16:46 08/14/24 16:46 Temperature Pulse Rate 107 H Respiratory Rate Blood Pressure 133/68 Pulse Oximetry 97 Oxygen Delivery Method MDM - Fever Lab Data 08/14/24 11:40 08/14/24 11:40 Labs: Lab Results 08/14/24 08/14/24 08/14/24 Range/Units 11:10 11:40 13:45 WBC 30.5 H* (4.5-11.0) X10^3/uL RBC 4.38 L (4.5-5.9) X10^6/uL Hgb 15.1 (13.5-17.5) g/dL Hct 43.5 (41-53) % MCV 99.3 (80-100) fL MCH 34.5 H (26-34) PG MCHC 34.8 (30-36) % RDW 13.2 (11.6-14.8) % Plt Count 143 L (150-400) X10^3/uL Neut % (Auto) Not Reportable Lymph % (Auto) Not Reportable [place] % (Auto) Not Reportable Eos % (Auto) Not Reportable Baso % (Auto) Not Reportable Lymph # (Auto) Not Reportable [place] # (Auto) Not Reportable Baso # (Auto) Not Reportable Total Counted 100 Seg Neutrophils % 79.0 H (38-70) % Band Neutrophils % 14.0 H (3-7) % Lymphocytes % (Manual) 4.0 L (25-45) % Monocytes % (Manual) 3.0 (2-11) % Neutrophils # (Manual) 67790 H (4839-5873) /uL RBC Morphology Normal morphology PT 14.9 H (9.4-12.5) SECONDS INR 1.3 (0.9-1.3) APTT 33 (25.1-36.5) SECONDS Sodium 129 L (137-145) mmol/L Potassium 3.8 (3.4-5.1) mmol/L Chloride 97 L (98-107) mmol/L Carbon Dioxide 17 L (22-32) mmol/L BUN 21 H (9-20) mg/dL Creatinine 1.67 H (0.66-1.25) mg/dL Estimated GFR 44 L (>60) mL/min BUN/Creatinine Ratio 12.6 (6-22) Glucose 161 H (80-110) mg/dL Lactate 3.0 H 1.2 (0.7-2.1) mmol/L Calcium 9.2 (8.4-10.2) mg/dL Total Bilirubin 1.1 (0.2-1.3) mg/dL AST 47 (17-59) IU/L ALT 38 (<50) IU/L Alkaline Phosphatase 61 (38-126) U/L Total Protein 7.4 (6.3-8.2) g/dL Albumin 4.3 (3.5-5.0) g/dL Globulin 3.1 (1.7-4.1) g/dL Albumin/Globulin Ratio 1.4 (1.0-2.8) Lipase 41 (23-300) U/L Procalcitonin 6.28 H (<0.5) ng/mL Urine RBC (0-5/HPF) Urine WBC (0-5/HPF) Ur Squamous Epith Cells (0-5/HPF) Urine Bacteria (None) Ur Culture Indicated? Vol Urine Centrifuged Stl C. cayetanensis PCR Not detected (Not Detect) Stool Rotavirus (PCR) Not detected (Not Detect) Stool Adenovirus (PCR) Not detected (Not Detect) Stool Astrovirus (PCR) Not detected (Not Detect) Stool Cryptosporidium PCR Not detected (Not Detect) Stl E.coli Shiga Tox PCR Not detected (Not Detect) St Sh/Enteroin Ecoli PCR Not detected (Not Detect) Stl Enterotoxigenic E PCR Not detected (Not Detect) Stool EPEC (PCR) Not detected (Not Detect) Stl E. histolytica PCR Not detected (Not Detect) Stool Giardia Lamblia PCR Not detected (Not Detect) Stool Sapovirus (PCR) Not detected (Not Detect) Stl P. shigelloides PCR Not detected (Not Detect) St Y.enterocolitica PCR Not detected (Not Detect) Stool Vibrio (PCR) Not detected (Not Detect) Stl Vibrio cholerae PCR Not detected (Not Detect) Stl Enteroaggr Ecoli PCR Not detected (Not Detect) Stl Norovirus GI/GII PCR Not detected (Not Detect) Campylobacter (PCR) Not detected (Not Detect) C. difficile Tox (PCR) Not detected (Not Detect) SARS-CoV-2 (PCR) Negative (Negative) Influenza A (RT-PCR) Flu a negative (NEGATIVE) Influenza B (RT-PCR) Flu b negative (NEGATIVE) RSV (PCR) Negative (Negative) Salmonella (PCR) Not detected (Not Detect) 08/14/ Range/Units 14:20 WBC (4.5-11.0) X10^3/uL RBC (4.5-5.9) X10^6/uL Hgb (13.5-17.5) g/dL Hct (41-53) % MCV (80-100) fL MCH (26-34) PG MCHC (30-36) % RDW (11.6-14.8) % Plt Count (150-400) X10^3/uL Neut % (Auto) Lymph % (Auto) [place] % (Auto) Eos % (Auto) Baso % (Auto) Lymph # (Auto) [place] # (Auto) Baso # (Auto) Total Counted Seg Neutrophils % (38-70) % Band Neutrophils % (3-7) % Lymphocytes % (Manual) (25-45) % Monocytes % (Manual) (2-11) % Neutrophils # (Manual) (8769-7379) /uL RBC Morphology PT (9.4-12.5) SECONDS INR (0.9-1.3) APTT (25.1-36.5) SECONDS Sodium (137-145) mmol/L Potassium (3.4-5.1) mmol/L Chloride (98-107) mmol/L Carbon Dioxide (22-32) mmol/L BUN (9-20) mg/dL Creatinine (0.66-1.25) mg/dL Estimated GFR (>60) mL/min BUN/Creatinine Ratio (6-22) Glucose (80-110) mg/dL Lactate (0.7-2.1) mmol/L Calcium (8.4-10.2) mg/dL Total Bilirubin (0.2-1.3) mg/dL AST (17-59) IU/L ALT (<50) IU/L Alkaline Phosphatase (38-126) U/L Total Protein (6.3-8.2) g/dL Albumin (3.5-5.0) g/dL Globulin (1.7-4.1) g/dL Albumin/Globulin Ratio (1.0-2.8) Lipase (23-300) U/L Procalcitonin (<0.5) ng/mL Urine RBC None seen (0-5/HPF) Urine WBC 5-10/hpf H (0-5/HPF) Ur Squamous Epith Cells 0-1 /hpf (0-5/HPF) Urine Bacteria Moderate (10-30) H (None) Ur Culture Indicated? Specimen cultured Vol Urine Centrifuged 10ml (spun) Stl C. cayetanensis PCR (Not Detect) Stool Rotavirus (PCR) (Not Detect) Stool Adenovirus (PCR) (Not Detect) Stool Astrovirus (PCR) (Not Detect) Stool Cryptosporidium PCR (Not Detect) Stl E.coli Shiga Tox PCR (Not Detect) St Sh/Enteroin Ecoli PCR (Not Detect) Stl Enterotoxigenic E PCR (Not Detect) Stool EPEC (PCR) (Not Detect) Stl E. histolytica PCR (Not Detect) Stool Giardia Lamblia PCR (Not Detect) Stool Sapovirus (PCR) (Not Detect) Stl P. shigelloides PCR (Not Detect) St Y.enterocolitica PCR (Not Detect) Stool Vibrio (PCR) (Not Detect) Stl Vibrio cholerae PCR (Not Detect) Stl Enteroaggr Ecoli PCR (Not Detect) Stl Norovirus GI/GII PCR (Not Detect) Campylobacter (PCR) (Not Detect) C. difficile Tox (PCR) (Not Detect) SARS-CoV-2 (PCR) (Negative) Influenza A (RT-PCR) (NEGATIVE) Influenza B (RT-PCR) (NEGATIVE) RSV (PCR) (Negative) Salmonella (PCR) (Not Detect) Urine Dip Bedside Urine Glucose Negative Bedside Urine Bilirubin - Negative Bedside Urine Ketone - Negative Urine Specific [place] 1.010 Bedside Urine Occult Blood - Negative Bedside Urine pH 6.0 Bedside Urine Protein ++ 100 Bedside Urine Urobilinogen - Negative Bedside Urine Nitrite - Negative Bedside Urine Leukocytes - Negative Esterase ECG Data Attestation: I personally reviewed and interpreted this ECG as follows: Prior ECG tracings: not available for review Interpretation: Sinus tachycardia rate of 102, NV 156 QRS 86 QTC of 385, no acute ST elevation depression noted. No prior for comparison. MDM Narrative Medical decision making narrative: Labs show white count of 30 hemoglobin of 15 platelets are 143, predominance of segmented neutrophils at 79% with 14% bands. Absolute neutrophil count is 28,365. INR is 1.3 chemistry shows sodium 129 patient was 136 in April of 2023. Creatinine is 1.67 was 0.84 in May, chloride 97 CO2 17 BUN 21 glucose is 161 lactate 3 calcium is 9.2 otherwise LFTs are appropriate procalcitonin is elevated at 6.28. Repeat lactate improved to 1.2 COVID/influenza/RSV is negative GI panel shows is negative Chest x-ray shows no acute change EKG shows sinus tachycardia. CT abdomen pelvis moderate heterogeneous enhancement right renal parenchyma areas of hypoenhancement within right posterior wall and lower lobes, mild proximal right hydro with a questionable ureteral and hyperenhancement perinephric stranding right greater than left. Mild wall thickening of the rectum extending in the sigmoid maybe exaggerated by underdistention. Postsurgical changes of diverting ileostomy no masses in the rectal vault. Normal appendix. Mild edema near surgical changes and rectum with mild free fluid without peripheral enhancement she was suggest organized abscess. Impression shows heterogeneous enhancement right kidney concerning for ascending infection, postsurgical changes rectum with mild residual wall thickening likely status post radiation treatment changes unchanged pericaval and periaortic subcentimeter lymph nodes without kelton lymphadenopathy. Free fluid in the pelvis near the anastomosis with likely postsurgical changes without peripheral has been organized abscess. CT angio PE shows no PE, mediastinal lymphadenopathy likely reactive however the setting of known primary can not exclude metastatic disease. Right chest wall port with tip near the cavoatrial junction. 68-year-old male had an ileostomy placed on 08/02/2024 [facility] 2 days ago spiked a fever confusion has had 12 rounds of chemo for rectal cancer last round was 2 months ago he was currently on Lovenox. Patient does meet septic criteria he was febrile and tachycardic with a leukocytosis. He was also had new urinary incontinence which is atypical. Attempting to obtain records from [facility] in [place] but has been unsuccessful thus far. Patient received Tylenol, patient had 30 cc/kilos bolus ordered, ondansetron, broad-spectrum antibiotic IV antibiotics. Patient's heart rate improved but his blood pressure also decreased initially but seems to be responsive to fluids. He does have access in the form of a port if he was requires pressors. Spoke with Dr. Jacobsen, surgery at [facility]. Reviewed findings and workup from today, patient felt to require transfer back to facility he feels comfortable with the patient staying here as it appears sepsis is more likely secondary to right pyelonephritis and no major changes on imaging or evaluation that is suggest significant complication with his recent surgery. He notes patient had colon resection with the proximal diverting ileostomy with plan for reanastomosis in the future. Spoke with hospitalist, Dr. Madrid about admission for sepsis, possible right pyelonephritis patient has had new urinary incontinence. Does meet septic criteria. Dr. Madrid saw patient here in the department. Accepts for inpatient admission. Critical Care Time Critical Care Time Critical Care Time: Yes Total Critical Care Time: 35 Attestation: The high probability of a clinically significant, sudden or life threatening deterioration of the cardiac system(s) required my full and direct attention, intervention and personal management. The aggregate critical care time was [--] minutes. This time is in addition to time spent performing reported procedures but includes the following: [x] Data Review and interpretation [x] Patient assessment and monitoring of vital signs [x] Documentation [x] Medication orders and management Discharge Plan Departure Patient Disposition: Admitted As Inpatient Clinical Impression: Sepsis, Pyelonephritis, CANDELARIO (acute kidney injury), S/P colon resection Admit Date/Time: 08/14/24 16:55 Admit Provider: Geovani Madrid V
[2024-08-14 12:37] LABS: COVID-19 CEPHEID 4-PLEX PCR Negative (Negative); Influenza A - CEPHEID Flu A NEGATIVE (NEGATIVE); Influenza B - CEPHEID Flu B NEGATIVE (NEGATIVE); Respiratory Syncytial Virus Negative (Negative)
--- NOTE | 2024-08-14 12:54 | DI.CT.S_ITS ---
PROCEDURE: CT ABDOMEN PELVIS W CON INDICATIONS: fever, recent ileostomy and rectal cancer 08/02 TECHNIQUE: After the administration of intravenous contrast, axial sections acquired from the lung bases to the pubic symphysis. Coronal and sagittal reformats were performed. For radiation dose reduction, the following was used: automated exposure control, adjustment of mA and/or kV according to patient size. COMPARISON: [facility], CT, CT CHEST ABD PEL W CON, 03/07/2024, 9:35. FINDINGS: Image quality: Diagnostic. Lower Chest: See separate dictated CT chest ABDOMEN: Liver: No solid mass. Gallbladder: Mildly contracted gallbladder without gallstones or wall thickening. Biliary ducts: No biliary dilation. Pancreas: No ductal dilation. Spleen: Size is within normal limits. Adrenal Glands: No adrenal nodules. Kidneys and Ureters: Moderately heterogeneous enhancement of the right renal parenchyma with areas of hypoenhancement within the right posterior wall and lower lobes. Mild proximal right hydronephrosis with questionable ureteral hyperenhancement. Perinephric fat stranding, right greater than left. Stomach and Bowel: No obstruction. Mild wall thickening of the rectum extending through the sigmoid colon may be exaggerated by underdistention.. Postsurgical changes of diverting ileostomy with bout bowel mass no asses in the rectal vault. Normal appendix. Peritoneum: Mild edema near the surgical changes in the rectum with mild free fluid without peripheral enhancement to suggest organized abscess. Ventral Wall: No significant ventral hernia. Abdominal Nodes: No retroperitoneal or mesenteric adenopathy by size criteria. Vessels: Aorta and inferior vena cava are normal in size. PELVIS: Pelvic Organs: Unremarkable. Bladder: No bladder wall thickening, accounting for underdistention. Pelvic Nodes: No enlarged lymph nodes. Miscellaneous: No inguinal hernias are seen. Bones: No aggressive osseous abnormality. Lytic lesion within the left iliac wing, unchanged IMPRESSION: * Heterogeneous enhancement of the right kidney is concerning for ascending infection, correlate with UA. * Postsurgical changes of the rectum with mild residual wall thickening likely status post radiation treatment changes. * Unchanged pericaval and periaortic subcentimeter lymph nodes without kelton lymphadenopathy. * Free fluid within the pelvis near the anastomosis likely postsurgical changes without peripheral enhancement to suggest organized abscess. Dictated by: Rafa Pelayo M.D. on 08/14/2024 at 13:03 Approved by: Rafa Pelayo M.D. on 08/14/2024 at 13:13
--- NOTE | 2024-08-14 13:08 | PC.NURSE ---
Pt reports he has been on chemotherapy (last was 2 months ago); states he started to develop body aches and fever. Pt reports he had an illeostomy procedure on the . States he had intermittent bladder retention while he was admitted. States he went home with a catheter for four days but since has had it taken out.
--- NOTE | 2024-08-14 13:09 | DI.CT.S_ITS ---
PROCEDURE: CT ANGIO CHEST PE PROTOCOL INDICATIONS: fever, sepsis, recent surgery, missed doses for dvt/pe preve TECHNIQUE: After the administration of intravenous contrast, 2 mm thick sections acquired from the pulmonary apices to the posterior costophrenic angles. 3-dimensional maximum intensity projection (MIP) coronal and sagittal reformats were then acquired through the thorax. For radiation dose reduction, the following was used: automated exposure control, adjustment of mA and/or kV according to patient size. COMPARISON: [facility], CT, CT CHEST ABD PEL W CON, 03/07/2024, 9:35. FINDINGS: Image quality: Diagnostic. Pulmonary arteries: Pulmonary arteries are normal in size, and demonstrate no intraluminal filling defects to suggest central pulmonary embolism. Right chest wall port with tip near cavoatrial junction. Lower Neck: No enlarged lymph nodes. Thyroid: 1.7 cm right thyroid nodule. Axillae: No enlarged lymph nodes. Chest Wall: Unremarkable. Bones: Unremarkable. Lungs and Pleura: No pneumothorax or pleural effusions. No consolidation or suspicious nodules. Basilar atelectasis and reticulation. Heart: Heart size is normal. No pericardial effusion. Thoracic Vessels: No aortic aneurysm. Mediastinum and Britney: Subcentimeter mediastinal lymphadenopathy at level 2 L and 2 are with surrounding fatty infiltration with lymph nodes measuring up to 0.8 cm. Additional 4 L and 4 are prominent lymph nodes. No hilar lymphadenopathy. Esophagus: No wall thickening. No hiatal hernia. Upper Abdomen: See separately dictated CT abdomen pelvis. IMPRESSION: No pulmonary embolus. Mediastinal lymphadenopathy, likely reactive however the setting of known primary cannot exclude metastatic disease. See separately dictated CT abdomen pelvis Dictated by: Rafa Pelayo M.D. on 08/14/2024 at 13:13 Approved by: Rafa Pelayo M.D. on 08/14/2024 at 13:20
[2024-08-14 13:21] LABS: Adenovirus F 40/41 Not Detected (Not Detect); Astrovirus Not Detected (Not Detect); Campylobacter Not Detected (Not Detect); Clostridium difficile toxin AB Not Detected (Not Detect); Cryptosporidium Not Detected (Not Detect); Cyclospora cayetanensis Not Detected (Not Detect); Entamoeba histolytica Not Detected (Not Detect); Enteroaggregative E.coli Not Detected (Not Detect); Enteropathogenic E.coli Not Detected (Not Detect); Enterotoxigenic E.coli It/st Not Detected (Not Detect); Giardia lamblia Not Detected (Not Detect); Norovirus GI/GII Not Detected (Not Detect); Plesiomonsa shigelloides Not Detected (Not Detect); Rotavirus A Not Detected (Not Detect); Salmonella Not Detected (Not Detect); Sapovirus Not Detected (Not Detect); Shiga-like toxin-prod E.coli Not Detected (Not Detect); Shigella/Enteroinvasive E.coli Not Detected (Not Detect); Vibrio Not Detected (Not Detect); Vibrio cholerae Not Detected (Not Detect); Yersinia enterocolitica Not Detected (Not Detect)
[2024-08-14 13:25] LABS: Reflexed Lactate in 2 Hours Y
[2024-08-14] MEDS: SODIUM CHLORIDE 0.9% 2,466 ML 822 ML IV (13:28)
[2024-08-14] MEDS: PIPERACILLIN/TAZO 4.5 GM in SODIUM CHLORIDE 0.9% 100 ML IV (13:33)
[2024-08-14] MEDS: VANCOMYCIN 1,500 MG/300 ML PIGGYBACK 200 MG IV (13:48)
[2024-08-14 14:23] LABS: Lactate 2HR (Lactic Acid Rflx) 1.2 mmol/L (0.7-2.1)
[2024-08-14 14:57] LABS: Bacteria Urine Moderate (10-30); Culture Indicated Urine Specimen Cultured; RBC Urine None Seen (0-5/HPF); Squamous Epithelial Cell Urine 0-1 /HPF (0-5/HPF); Urine Volume 10mL (spun); WBC Urine 5-10/HPF (0-5/HPF)
--- NOTE | 2024-08-14 15:26 | PC.NURSE ---
Pt reports he feels better. Pt seems to be more alert. Pt urinating through condom cath.
--- NOTE | 2024-08-14 17:04 | PM.HP.IH.1 ---
History of Present Illness History of Present Illness Date Patient Seen: 08/14/24 Time Patient Seen: 16:40 Chief complaint: Issues after surgery Narrative: 68-year-old man with recently diagnosed rectal cancer, status post neoadjuvant chemotherapy times 12 rounds last administered 2 months ago followed by ileostomy on 08/02/[address] M[place]ks [place] [facility] [place] noted intermittent fevers over the past few days. His is described confusion as well, and feels he is mildly confused presently on interview in the emergency department. He is febrile, [place] [address], in otherwise denies nausea, vomiting, abdominal pain or problems with his ileostomy, with normal stool output. He has a mild rash on his inner thigh were a Emmanuel catheter was taped recently. He has been on Lovenox injections for postoperative DVT prophylaxis. Urinalysis in the emergency department showed findings consistent with urinary infection and he was administered IV Zosyn, and admitted for further management and evaluation. [facility] Medical History Measles (~1959) Platelet disorder (~2011) Rectal cancer Right knee pain (~2016) Rosacea Surgical History Anesthesia History of colonoscopy (~2019) Family History Father Cancer Mother Stroke Brother History of heart disease Social History Smoking Status: Never smoker Meds Home Medications and Allergies Home Medications Medication Instructions Recorded Confirmed Type ketoconazole 2 % shampoo 1 applic topical 2XW #120 mL 03/19/21 03/19/21 Rx doxycycline hyclate 50 mg capsule 50 mg PO DAILY #5 caps 05/22/21 Rx lisinopril 20 mg tablet 20 mg PO DAILY #90 tabs 03/11/22 Rx Allergies Allergy/AdvReac Type Severity Reaction Status Date / Time No Known Drug Allergies Allergy Verified 08/14/24 11:53 Review of Systems Review of Systems ROS: Yes All systems reviewed with the patient and are negative except as otherwise documented Exam Vital Signs (past 8 hours): - 08/14/24 11:09 08/14/24 12:51 08/14/24 12:53 Temperature 100.7 F H 100.4 F H Pulse Rate 115 H 83 Respiratory Rate 17 19 Blood Pressure 116/55 L Pulse Oximetry 95 93 Oxygen Delivery Method Room Air 08/14/24 13:00 08/14/24 13:00 08/14/24 13:15 Temperature Pulse Rate 84 Respiratory Rate 19 Blood Pressure 100/58 L 101/57 L Pulse Oximetry 96 Oxygen Delivery Method 08/14/24 13:15 08/14/24 13:33 08/14/24 13:35 Temperature Pulse Rate 80 79 79 Respiratory Rate 17 Blood Pressure Pulse Oximetry 95 98 Oxygen Delivery Method 08/14/24 13:35 08/14/24 13:45 08/14/24 13:45 Temperature Pulse Rate 78 Respiratory Rate 24 Blood Pressure 114/56 L 115/58 L Pulse Oximetry 98 Oxygen Delivery Method 08/14/24 14:00 08/14/24 14:00 08/14/24 14:05 Temperature 98.6 F Pulse Rate 78 Respiratory Rate 18 Blood Pressure 132/61 Pulse Oximetry 97 Oxygen Delivery Method 08/14/24 14:08 08/14/24 14:15 08/14/24 14:15 Temperature 98.6 F Pulse Rate 81 Respiratory Rate 19 Blood Pressure 148/67 H Pulse Oximetry 91 Oxygen Delivery Method 08/14/24 14:30 08/14/24 14:30 08/14/24 14:45 Temperature Pulse Rate 84 Respiratory Rate 24 Blood Pressure 143/74 H 138/57 L Pulse Oximetry 95 Oxygen Delivery Method 08/14/24 14:45 08/14/24 15:00 08/14/24 15:00 Temperature Pulse Rate 86 96 H Respiratory Rate 21 22 Blood Pressure 162/70 H Pulse Oximetry 96 94 Oxygen Delivery Method Room Air 08/14/24 15:22 08/14/24 15:22 08/14/24 15:30 Temperature Pulse Rate 95 H Respiratory Rate 23 Blood Pressure 125/56 L 120/59 L Pulse Oximetry 93 Oxygen Delivery Method 08/14/24 15:30 08/14/24 15:45 08/14/24 15:45 Temperature Pulse Rate 91 H 97 H Respiratory Rate 21 23 Blood Pressure 124/60 Pulse Oximetry 98 96 Oxygen Delivery Method 08/14/24 16:00 08/14/24 16:00 04/20/25 16:15 Temperature Pulse Rate 104 H Respiratory Rate 22 Blood Pressure 139/67 112/55 L Pulse Oximetry 95 Oxygen Delivery Method 08/14/24 16:15 08/14/24 16:30 08/14/24 16:30 Temperature Pulse Rate 102 H 104 H Respiratory Rate 24 24 Blood Pressure 110/56 L Pulse Oximetry 95 95 Oxygen Delivery Method Oxygen Delivery Method Room Air Narrative Exam Narrative: GENERAL: This is a well-nourished, well-developed patient, mildly diaphoretic, appears mildly confused, otherwise in no apparent distress. HEAD: Atraumatic. Normocephalic. No temporal or scalp tenderness. EYES: Pupils equal round and reactive. Extraocular motions intact. No scleral icterus. No injection or drainage. ENT: Mucous membranes pink and moist. NECK: Trachea midline. No JVD, bruits or lymphadenopathy. Supple, nontender, no meningeal signs. CARDIOVASCULAR: Regular tachycardic rhythm without murmurs, gallops, or rubs. RESPIRATORY: Clear to auscultation. GASTROINTESTINAL: Abdomen soft, non-tender, nondistended. Right-sided ileostomy in place with liquid brown stool in bag. EXTREMITIES: No clubbing, cyanosis, or edema. NEUROLOGIC: Alert, oriented, speech fluent, full upper and lower motor strength, no focal deficits evident. DERMATOLOGIC: No rashes or skin lesions. Objective ECG Impression: Sinus tachycardia at 102 beats per minute, no ischemic changes. Imaging Chest x-ray 08/14/2024: : My impression: 1. Radiologist's impression: No acute cardiopulmonary abnormality is seen. Chest CT angiography 08/14/2024: : Radiologist's impression: No pulmonary embolus. Mediastinal lymphadenopathy, likely reactive however the setting of known primary cannot exclude metastatic disease. CT abdomen pelvis with contrast 08/14/2024:: Radiologist's impression: * Heterogeneous enhancement of the right kidney is concerning for ascending infection, correlate with UA. * Postsurgical changes of the rectum with mild residual wall thickening likely status post radiation treatment changes. * Unchanged pericaval and periaortic subcentimeter lymph nodes without kelton lymphadenopathy. * Free fluid within the pelvis near the anastomosis likely postsurgical changes without peripheral enhancement to suggest organized abscess. Labs 08/14/24 11:40 08/14/24 11:40 Labs: Laboratory Results - last 24 hr 08/14/24 08/14/24 08/14/24 11:10 11:40 13:45 WBC 30.5 H* RBC 4.38 L Hgb 15.1 Hct 43.5 MCV 99.3 MCH 34.5 H MCHC 34.8 RDW 13.2 Plt Count 143 L Neut % (Auto) Not Reportable Lymph % (Auto) Not Reportable [place] % (Auto) Not Reportable Eos % (Auto) Not Reportable Baso % (Auto) Not Reportable Lymph # (Auto) Not Reportable [place] # (Auto) Not Reportable Baso # (Auto) Not Reportable Total Counted 100 Seg Neutrophils % 79.0 H Band Neutrophils % 14.0 H Lymphocytes % (Manual) 4.0 L Monocytes % (Manual) 3.0 Neutrophils # (Manual) 74394 H RBC Morphology Normal morphology PT 14.9 H INR 1.3 APTT 33 Sodium 129 L Potassium 3.8 Chloride 97 L Carbon Dioxide 17 L BUN 21 H Creatinine 1.67 H Estimated GFR 44 L BUN/Creatinine Ratio 12.6 Glucose 161 H Lactate 3.0 H 1.2 Calcium 9.2 Total Bilirubin 1.1 AST 47 ALT 38 Alkaline Phosphatase 61 Total Protein 7.4 Albumin 4.3 Globulin 3.1 Albumin/Globulin Ratio 1.4 Lipase 41 Procalcitonin 6.28 H Urine RBC Urine WBC Ur Squamous Epith Cells Urine Bacteria Ur Culture Indicated? Vol Urine Centrifuged Stl C. cayetanensis PCR Not detected Stool Rotavirus (PCR) Not detected Stool Adenovirus (PCR) Not detected Stool Astrovirus (PCR) Not detected Stool Cryptosporidium PCR Not detected Stl E.coli Shiga Tox PCR Not detected St Sh/Enteroin Ecoli PCR Not detected Stl Enterotoxigenic E PCR Not detected Stool EPEC (PCR) Not detected Stl E. histolytica PCR Not detected Stool Giardia Lamblia PCR Not detected Stool Sapovirus (PCR) Not detected Stl P. shigelloides PCR Not detected St Y.enterocolitica PCR Not detected Stool Vibrio (PCR) Not detected Stl Vibrio cholerae PCR Not detected Stl Enteroaggr Ecoli PCR Not detected Stl Norovirus GI/GII PCR Not detected Campylobacter (PCR) Not detected C. difficile Tox (PCR) Not detected SARS-CoV-2 (PCR) Negative Influenza A (RT-PCR) Flu a negative Influenza B (RT-PCR) Flu b negative RSV (PCR) Negative Salmonella (PCR) Not detected 08/14/24 14:20 WBC RBC Hgb Hct MCV MCH MCHC RDW Plt Count Neut % (Auto) Lymph % (Auto) [place] % (Auto) Eos % (Auto) Baso % (Auto) Lymph # (Auto) [place] # (Auto) Baso # (Auto) Total Counted Seg Neutrophils % Band Neutrophils % Lymphocytes % (Manual) Monocytes % (Manual) Neutrophils # (Manual) RBC Morphology PT INR APTT Sodium Potassium Chloride Carbon Dioxide BUN Creatinine Estimated GFR BUN/Creatinine Ratio Glucose Lactate Calcium Total Bilirubin AST ALT Alkaline Phosphatase Total Protein Albumin Globulin Albumin/Globulin Ratio Lipase Procalcitonin Urine RBC None seen Urine WBC 5-10/hpf H Ur Squamous Epith Cells 0-1 /hpf Urine Bacteria Moderate (10-30) H Ur Culture Indicated? Specimen cultured Vol Urine Centrifuged 10ml (spun) Stl C. cayetanensis PCR Stool Rotavirus (PCR) Stool Adenovirus (PCR) Stool Astrovirus (PCR) Stool Cryptosporidium PCR Stl E.coli Shiga Tox PCR St Sh/Enteroin Ecoli PCR Stl Enterotoxigenic E PCR Stool EPEC (PCR) Stl E. histolytica PCR Stool Giardia Lamblia PCR Stool Sapovirus (PCR) Stl P. shigelloides PCR St Y.enterocolitica PCR Stool Vibrio (PCR) Stl Vibrio cholerae PCR Stl Enteroaggr Ecoli PCR Stl Norovirus GI/GII PCR Campylobacter (PCR) C. difficile Tox (PCR) SARS-CoV-2 (PCR) Influenza A (RT-PCR) Influenza B (RT-PCR) RSV (PCR) Salmonella (PCR) Assessment & Plan Assessment & Plan narrative: 1. Urinary tract infection, presumably catheter associated, with suspected right pyelonephritis. Treat with IV Zosyn. 2. Sepsis due to 1., with leukocytosis, elevated serum lactate, acute kidney injury, and tachycardia. Hydrate intravenously and monitor. Likely his corrected from 3.0-1.2 within 3 hours of presentation. 3. Rectal cancer, status post recent ileostomy. No complications evident. ER reviewed his case with his primary surgery team. 4. CLL with history of thrombocytopenia. Appears stable. 5. Hypertension. Hold antihypertensives. Monitor blood pressures. DVT prophylaxis: Subcutaneous Lovenox Code status: Full code. 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
[2024-08-14] MEDS: DEXTROSE 5%-0.45% NS 1,000 ML 100 ML IV ×2 (17:36→20:22)
[2024-08-14] MEDS: ACETAMINOPHEN 325 MG TABLET 650 MG PO (18:10)
[2024-08-14] MEDS: LIDOCAINE 2% (GLYDO) 6 ML GEL TOP (18:20)
[2024-08-14] MEDS: PIPERACILLIN/TAZO 3.375 GM in SODIUM CHLORIDE 0.9% 100 ML IV (22:06)
[2024-08-15] VITALS (16 sets, daily range): BP systolic 96–126; BP diastolic 53–69; PULSE 71–102; RESP 16–20; TEMP 36.6–39.4; O2SAT 94–98
[2024-08-15] MEDS: ACETAMINOPHEN 325 MG TABLET 650 MG PO ×4 (00:17→18:00)
[2024-08-15 03:21] LABS: Acinetobacter calcoa-baumannii Not Detected (Not Detect); Bacteroides fragilis Not Detected (Not Detect); Candida albicans Not Detected (Not Detect); Candida auris Not Detected (Not Detect); Candida glabrata Not Detected (Not Detect); Candida krusei Not Detected (Not Detect); Candida parapsilosis Not Detected (Not Detect); Candida tropicalis Not Detected (Not Detect); Cryptococcus neoformans/gatti Not Detected (Not Detect); Enterobacter cloacae complex Not Detected (Not Detect); Enterobacterales Not Detected (Not Detect); Enterococcus faecalis Detected (Not Detect); Enterococcus faecium Not Detected (Not Detect); Haemophilus influenzae Not Detected (Not Detect); Klebsiella aerogenes Not Detected (Not Detect); Listeria monocytogenes Not Detected (Not Detect); Neisseria meningitidis Not Detected (Not Detect); Proteus species Not Detected (Not Detect); Pseudomonas aeruginosa Not Detected (Not Detect); Salmonella species Not Detected (Not Detect); Serratia marcescens Not Detected (Not Detect); Staphylococcus epidermidis Not Detected (Not Detect); Staphylococcus lugdunensis Not Detected (Not Detect); Staphylococcus species Not Detected (Not Detect); Stenotrophomonas maltophilia Not Detected (Not Detect); Streptococcus agalactiae (Gr B Not Detected (Not Detect); Streptococcus pneumonia Not Detected (Not Detect); Streptococcus pyogenes (Gr A) Not Detected (Not Detect); Streptococcus species Not Detected (Not Detect); Vancomycin-rest genes A/B Not Detected (Not Detect)
[2024-08-15] MEDS: PIPERACILLIN/TAZO 3.375 GM in SODIUM CHLORIDE 0.9% 100 ML IV (05:14)
[2024-08-15] MEDS: DEXTROSE 5%-0.45% NS 1,000 ML 100 ML IV ×2 (05:17→15:18)
[2024-08-15 06:05] LABS: Add Manual Diff / Slide Review NO; Basophils Absolute Auto 0 /uL (0-100); Basophils Percent Auto 0.1 % (0-2); Eosinophils Absolute Auto 0 /uL (0-450); Hematocrit 38.5 % (41-53); Hemoglobin 13.4 g/dL (13.5-17.5); Lymphocytes Absolute Auto 300 /uL (1100-4500); Lymphocytes Percent Auto 1.1 % (25-40); Mean Corpuscular HGB Conc 34.8 % (30-36); Mean Corpuscular Hemoglobin 34.3 PG (26-34); Mean Corpuscular Volume 98.6 fL (80-100); Monocytes Absolute Auto 1100 /uL (0-900); Monocytes Percent Auto 3.8 % (3-14); Neutrophils Absolute Auto 27400 /uL (1500-7000); Platelet Count 118 X10^3/uL (150-400); Red Cell Distribution Width 13.5 % (11.6-14.8); White Blood Cell Count 28.8 X10^3/uL (4.5-11.0)
[2024-08-15 06:16] LABS: BUN Creatinine Ratio 14.1 (6-22); Blood Urea Nitrogen 23 mg/dL (9-20); Calcium 8.2 mg/dL (8.4-10.2); Carbon Dioxide 21 mmol/L (22-32); Chloride 102 mmol/L (98-107); Estimated Glomerular Filt Rate 45 mL/min (>60); Glucose 150 mg/dL (80-110); HEMOLYSIS < 15 (0-50); Potassium 3.8 mmol/L (3.4-5.1); Sodium 130 mmol/L (137-145)
[2024-08-15] MEDS: ENOXAPARIN 40 MG/0.4 ML SYRINGE SUBCUT (09:37)
[2024-08-15] MEDS: VANCOMYCIN 1,250 MG/250 ML PIGGYBACK 250 MG IV ×2 (09:38→17:12)
[2024-08-15] MEDS: AMPICILLIN 2,000 MG in SODIUM CHLORIDE 0.9% 100 ML 200 MG IV ×3 (11:30→19:37)
--- NOTE | 2024-08-15 11:44 | CM.DANOTE ---
DCP Assessment Note pt is a 68yo M admitted with UTI rectal cancer, status post neoadjuvant chemotherapy times 12 rounds last administered 2 months ago followed by ileostomy on 08/02/[address] Meeks at [facility] [place] has noted intermittent fevers over the past few days (H&P) PCP Elma ORTEGA Medicare and self pay PUMP OPERATOR reviewed EMR. per provider in morning rounds, pt likely here a few days for IV abx. blood cultures pending. ID Consult likely Per RN, pt has been 1PA with nursing, indep at [facility]. still having small fever/confusion. Per RN, either nursing staff or pt/family can change the ileostomy bag as needed. PUMP OPERATOR met with pt and sposue in room. confirms living together in [place] indep at baseline, no DME. hx of Inf Solu for chemo tx, preference if terminal press operator iv abx needed is to continue with infusion solution. no Hx of HH/SNF. have an OP WC appt 08/17 for rash around ileostomy bag. pt eager to dc home. spouse reports they brought supplies for bag change and it is due tomorrow, can do it while pt is here. denies DCP/CM needs at this time. PUMP OPERATOR updated Micki in wound care, rescheduled pt's appt for nexy 08/24 at 10am due to likelihood of pt remaining here for a few days. PUMP OPERATOR updated pt/spouse with new appt time. P: anticipate dc home with OP f/u when medically stable, spouse to transport. likely here a few days vs f/u if skilled nursing IV abx needed. Will continue to follow as needed MOHSEN Rose Discharge Planning/Care Management CM Discharge Assessment Start: 08/15/24 11:42 Freq: Status: Active Protocol: Document 08/15/24 11:42 SL (Rec: 08/15/24 11:44 SL Desktop) Discharge Planning Assessment Assigned Emt Driver MOHSEN Packer DPOA/Assigned Designee Name Katie, spouse Contact Information [phone] Advance Directives? No History Provided By Patient,Medical Record Prior Living Arrangements House Household Members spouse Type of transporation used prior to Drives own vehicle admit Independent with ADL's Yes Is patient alert and oriented? Yes Barriers to Discharge No Discharge Plan Home Transportation Arrangement family in [place] Referrals Initiated None needed SNF/HH Preference hx of Inf Trini for chemo Whiteboard Updated in Patient Room with Yes name and ext. # of Emt Driver Review Status In Process Please Provide Date Initial DC 08/15/24 Assessment Was Performed Next Review Type Continued Stay Review
--- NOTE | 2024-08-15 14:02 | P.PN_ITS ---
Subjective Subjective Interval history: 68 year old male admitted with sepsis now found due to E. faecalis bacteremia. Improving somewhat today, he does not have much of an appetitie but denies any overt nausea, vomiting abdominal pain. Drinking lots of fluids. Exam Vital Signs (past 8 hours): - 08/15/24 08:00 08/15/24 09:00 08/15/24 09:38 Temperature 100.1 F H 101.9 F H 101.5 F H Pulse Rate 86 Respiratory Rate 18 Blood Pressure 126/60 Pulse Oximetry 98 Oxygen Flow Rate 0 08/15/24 11:11 Temperature 101.3 F H Pulse Rate Respiratory Rate Blood Pressure Pulse Oximetry Oxygen Flow Rate Oxygen Delivery Method Room Air Oxygen Flow Rate 0 Narrative Exam Narrative: GENERAL: This is a well-nourished, well-developed patient, mildly diaphoretic, appears mildly confused, otherwise in no apparent distress. HEAD: Atraumatic. Normocephalic. No temporal or scalp tenderness. EYES: Pupils equal round and reactive. Extraocular motions intact. No scleral icterus. No injection or drainage. ENT: Mucous membranes pink and moist. NECK: Trachea midline. No JVD, bruits or lymphadenopathy. Supple, nontender, no meningeal signs. CARDIOVASCULAR: Regular tachycardic rhythm without murmurs, gallops, or rubs. RESPIRATORY: Clear to auscultation. GASTROINTESTINAL: Abdomen soft, non-tender, nondistended. Right-sided ileostomy in place with liquid brown stool in bag. EXTREMITIES: No clubbing, cyanosis, or edema. NEUROLOGIC: Alert, oriented, speech fluent, full upper and lower motor strength, no focal deficits evident. DERMATOLOGIC: No rashes or skin lesions. Objective Labs 08/15/24 05:30 08/15/24 05:30 Labs: Laboratory Results - last 24 hr 08/14/24 08/14/24 08/15/24 13:45 14:20 05:30 WBC 28.8 H RBC 3.90 L Hgb 13.4 L Hct 38.5 L MCV 98.6 MCH 34.3 H MCHC 34.8 RDW 13.5 Plt Count 118 L Neut % (Auto) 95.0 H Lymph % (Auto) 1.1 L [place] % (Auto) 3.8 Eos % (Auto) 0.0 L Baso % (Auto) 0.1 Neut # (Auto) 21149 H Lymph # (Auto) 300 L [place] # (Auto) 1100 H Eos # (Auto) 0 Baso # (Auto) 0 Sodium 130 L Potassium 3.8 Chloride 102 Carbon Dioxide 21 L BUN 23 H Creatinine 1.63 H Estimated GFR 45 L BUN/Creatinine Ratio 14.1 Glucose 150 H Lactate 1.2 Calcium 8.2 L Urine RBC None seen Urine WBC 5-10/hpf H Ur Squamous Epith Cells 0-1 /hpf Urine Bacteria Moderate (10-30) H Ur Culture Indicated? Specimen cultured Vol Urine Centrifuged 10ml (spun) A.calcoaceticus-baumannii cmplx PCR Bacteroides fragilis Adriana albicans (PCR) Adriana auris (PCR) C. glabrata (PCR) C. krusei (PCR) C. parapsilosis (PCR) C. tropicalis (PCR) C. neoform/gattii (PCR) Enterobacterales (PCR) E. cloacae complex PCR Enterococc faecalis PCR Enterococc faecium PCR E. coli (PCR) H. influenzae (PCR) Klebsiella aerogenes (PCR) Klebsiella oxytoca PCR Klebsiella pneumoniae List. monocytogenes PCR N. meningitidis (PCR) Proteus species (PCR) Salmonella spp. (PCR) Serratia marcescens PCR Staphylococcus sp PCR Staph aureus (PCR) mecA/C & MREJ Resist Gene mecA/C-Methicil Resis Gene mcr-1 Colistin Res Gene PCR Staph epidermidis (PCR) Staph lugdunensis PCR S. maltophilia (PCR) Streptococcus sp PCR Group A Strep (PCR) Strep agalactiae (PCR) Strep pneumoniae (PCR) P. aeruginosa (PCR) Laura/B-Vanco Res Genes blaIMP Car res Gene PCR KPC-Carbap Res Gene PCR blaNDM Car Res Gene PCR OXA-48 Carbapenem Resis Gene (PCR) blaVIM Car Res Gene PCR CTX-M Gene Resistance (PCR) 08/15/24 11:40 WBC RBC Hgb Hct MCV MCH MCHC RDW Plt Count Neut % (Auto) Lymph % (Auto) [place] % (Auto) Eos % (Auto) Baso % (Auto) Neut # (Auto) Lymph # (Auto) [place] # (Auto) Eos # (Auto) Baso # (Auto) Sodium Potassium Chloride Carbon Dioxide BUN Creatinine Estimated GFR BUN/Creatinine Ratio Glucose Lactate Calcium Urine RBC Urine WBC Ur Squamous Epith Cells Urine Bacteria Ur Culture Indicated? Vol Urine Centrifuged A.calcoaceticus-baumannii cmplx PCR Not detected Bacteroides fragilis Not detected Adriana albicans (PCR) Not detected Adriana auris (PCR) Not detected C. glabrata (PCR) Not detected C. krusei (PCR) Not detected C. parapsilosis (PCR) Not detected C. tropicalis (PCR) Not detected C. neoform/gattii (PCR) Not detected Enterobacterales (PCR) Not detected E. cloacae complex PCR Not detected Enterococc faecalis PCR Detected Enterococc faecium PCR Not detected E. coli (PCR) Not detected H. influenzae (PCR) Not detected Klebsiella aerogenes (PCR) Not detected Klebsiella oxytoca PCR Not detected Klebsiella pneumoniae Not detected List. monocytogenes PCR Not detected N. meningitidis (PCR) Not detected Proteus species (PCR) Not detected Salmonella spp. (PCR) Not detected Serratia marcescens PCR Not detected Staphylococcus sp PCR Not detected Staph aureus (PCR) Not detected mecA/C & MREJ Resist Gene Not applicable mecA/C-Methicil Resis Gene Not applicable mcr-1 Colistin Res Gene PCR Not applicable Staph epidermidis (PCR) Not detected Staph lugdunensis PCR Not detected S. maltophilia (PCR) Not detected Streptococcus sp PCR Not detected Group A Strep (PCR) Not detected Strep agalactiae (PCR) Not detected Strep pneumoniae (PCR) Not detected P. aeruginosa (PCR) Not detected Laura/B-Vanco Res Genes Not detected blaIMP Car res Gene PCR Not applicable KPC-Carbap Res Gene PCR Not applicable blaNDM Car Res Gene PCR Not applicable OXA-48 Carbapenem Resis Gene (PCR) Not applicable blaVIM Car Res Gene PCR Not applicable CTX-M Gene Resistance (PCR) Not applicable [facility] Medical History Measles (~1960) Platelet disorder (~2011) Rectal cancer Right knee pain (~2016) Rosacea Surgical History (Updated 08/14/24 @ 17:30 by Echo Campa DO) Anesthesia History of colonoscopy (~2019) Family History Father Cancer Mother Stroke Brother History of heart disease Social History household members: spouse Smoking Status: Never smoker Assessment & Plan Assessment & Plan narrative: 1. Sepsis secondary to E. faecalis bacteremia, acute, present on admission. Unclear association with recent Low Anterior Resection. - repeat blood cultures today after 24 hours ordered - sources for bacteremia include urinary (E faecalis may raise suspicion for fistulous connection), bacteremia due to recent LAR at OSH, less likely anastaomtic leak (less likely based on imaging data thus far), less likely port site infection. No evidence for any other these more major issues on CT imaging. - change antibiotics to ampicillin and vancomycin for E. faecalis targeted therapy, was on zosyn initially. - discuss with infectious disease once culture data is available regarding possible further investigation for source. Follow up repeat blood cultures today. Will try to reach out to ID at [facility] for consultation given his surgical team is there. - TTE ordered - follow cr with BMP, slightly improving, continue IV fluids today. 2. Acute metabolic encephalopathy, CANDELARIO, thrombocytopenia due to #1 - see above management. 3. Rectal cancer, status post recent ileostomy. No complications evident on imaging. ER reviewed his case with his primary surgery team. 4. CLL with history of thrombocytopenia. - WBC was recently 9.4 2 weeks ago at OSH per chart review. - Marked leukocytosis likely due to bacteremia. Plt was 74 2 weeks ago, essentially stable today in the low 100s. 5. Hypertension. Holding home lisinopril, BP still soft today. Monitor blood pressures. DVT prophylaxis: Subcutaneous Lovenox, Code status: Full code. His Katie is present at bedside and is his surrogate decision maker Time-Based Coding :: [TOTAL MINUTES] spent with patient and on the chart (including review of chart, obtaining history, exam, reviewing outside data, placing orders, documenting exam and treatment plan, and counseling patient) on [DATE].
--- NOTE | 2024-08-15 14:09 | DI.ECHO.S_ITS ---
[facility]+ [facility] : : [address] : : [place] : : [address] : : Phone: [phone] Echocardiogram Report + + :Name: JERI BENTON Study Date: 08/15/2024 Height: 74 in : :Hospital ReadingLocation: Weight: 206 lb : : Gender: Male BSA: 2.2 m2 : :: 1955 Age: 68 yrs BP: 109/59 mmHg: :Reason For Study: GRAM POSITIVE BACTEREMIA (E. FAECALIS) : :Ordering Physician: TORITO, : :BRANDYN AMES Performed By: Cynthia Solano : :Referring: BRANDYN UGARTE : + + Interpretation Summary 1. The left ventricular contractility is borderline. Estimate ejection fraction is 50 to 55% with paradoxical septal motion consistent with a bundle branch block. No LVH. Normal diastolic function. 2. The right ventricular contractility is normal. 3. Mild right ventricular enlargement. The left atrium is also mildly dilated. All other cardiac chambers are of normal size. 4. Mild mitral regurgitation noted. 5. No obvious valvular vegetations appreciated. 6. No obvious intracardiac shunts noted. 7. No obvious intracardiac masses nor thrombi. 8. No hemodynamically significant pericardial effusion. 8. Low right-sided filling pressures. Conclusion: Low normal left ventricular systolic function with mild mitral regurgitation. No obvious valvular vegetations noted. Procedure: A two-dimensional transthoracic echocardiogram with color flow and Doppler was performed. The study quality was technically adequate. There is no prior echocardiogram noted for this patient. The patient was in sinus rhythm with heart rates between 60-78 bpm during the exam. Left Ventricle: The left ventricle is normal in size and wall thickness. The ejection fraction is estimated to be 50-55%. Septal motion is consistent with conduction abnormality. Right Ventricle: The right ventricle is mildly dilated. The right ventricular systolic function is normal. Atria: The left atrium is mildly dilated. Right atrial size is normal. There is no Doppler evidence for an interatrial shunt. Mitral Valve: The mitral valve leaflets appear to open well. There is mild mitral regurgitation. Aortic Valve: The aortic valve is trileaflet. The aortic valve opens well. There is no aortic valve stenosis. No aortic regurgitation is present. Tricuspid Valve: The tricuspid valve leaflets are thin and pliable. There is trace tricuspid regurgitation. The right ventricular systolic pressure is estimated to be at least 24 mmHg based on an estimated right atrial pressure of 3 mm Hg. Pulmonic Valve: The pulmonic valve leaflets are thin and pliable; valve motion is normal. There is no pulmonic valvular regurgitation. Great Vessels: The aortic root is normal size. The ascending aorta is mildly enlarged. The IVC is of normal diameter and collapses greater than 50% with a sniff. This suggests a low right atrial pressure of 3 mm Hg. Pericardium/ Pleura There is no pericardial effusion. There is no pleural effusion. MMode/2D Measurements & Calculations LVIDd: 5.3 cm LVOT diam: 2.2 cm LVIDs: 3.9 cm Ao root diam: 3.9 cm FS: 25.5 % asc Aorta Diam: 3.8 cm EPSS: 0.50 cm Ao Arch Diam (Prox Trans): 3.2 cm IVSd: 0.98 cm LVPWd: 0.84 cm LV easley. diameter/BSA (cm/m^2): 2.4 LV sys. diameter/BSA (cm/m^2): 1.8 LA A2 area: 26.1 cm2 RA long axis: 6.0 cm LA A4 area: 21.5 cm2 RA area: 19.3 cm2 LA length (vol): 5.8 cm RA vol: 52.7 ml LA vol: 82.7 ml RA : 24.0 ml/m2 LA vol index: 37.6 ml/m2 IVC diam: 2.0 cm RVD1 (basal): 4.6 cm RVD2 (mid): 3.7 cm TAPSE: 2.1 cm Doppler Measurements & Calculations Ao V2 max: 148.9 cm/sec LVOT Max Jose: 117.3 cm/sec Ao V2 mean: 100.2 cm/sec LV V1 max P.5 mmHg Ao max P.9 mmHg LV V1 VTI: 23.9 cm Ao mean P.6 mmHg PRABHJOT(I,D): 3.3 cm2 Ao V2 VTI: 27.2 cm PRABHJOT(V,D): 3.0 cm2 sev ratio: 0.88 PRABHJOT indexed to BSA (cm^2/m^2): 1.5 MV E max jose: 77.6 cm/sec TR max jose: 227.3 cm/sec MV A max jose: 71.5 cm/sec TR max P.7 mmHg MV E/A: 1.1 PA V2 max: 104.1 cm/sec Med Peak E' Jose: 7.9 cm/sec PA V2 mean: 72.4 cm/sec E/E' med: 9.8 PA mean P.3 mmHg Lat Peak E' Jose: 10.1 cm/sec DONNA pr(Accel): 36.6 mmHg E/E' lat: 7.7 E/e' average: 8.8 MV dec time: 0.20 sec SV(LVOT): 90.0 ml Reading Physician:MLEVINA
[2024-08-16] VITALS (7 sets, daily range): BP systolic 106–123; BP diastolic 62–70; PULSE 74–79; RESP 16–20; TEMP 36.9–38.3; O2SAT 95–98
[2024-08-16] MEDS: AMPICILLIN 2,000 MG in SODIUM CHLORIDE 0.9% 100 ML 200 MG IV ×7 (00:23→23:28)
[2024-08-16] MEDS: ACETAMINOPHEN 325 MG TABLET 650 MG PO (00:31)
[2024-08-16] MEDS: VANCOMYCIN 1,250 MG/250 ML PIGGYBACK 250 MG IV (01:00)
[2024-08-16] MEDS: DEXTROSE 5%-0.45% NS 1,000 ML 100 ML IV (02:32)
[2024-08-16 04:55] LABS: Add Manual Diff / Slide Review NO; Basophils Absolute Auto 0 /uL (0-100); Basophils Percent Auto 0.1 % (0-2); Eosinophils Absolute Auto 0 /uL (0-450); Eosinophils Percent Auto 0.2 % (2-4); Hematocrit 36.9 % (41-53); Hemoglobin 12.8 g/dL (13.5-17.5); Lymphocytes Absolute Auto 500 /uL (1100-4500); Lymphocytes Percent Auto 2.9 % (25-40); Mean Corpuscular HGB Conc 34.8 % (30-36); Mean Corpuscular Hemoglobin 34.2 PG (26-34); Mean Corpuscular Volume 98.3 fL (80-100); Monocytes Absolute Auto 1000 /uL (0-900); Monocytes Percent Auto 6.1 % (3-14); Neutrophils Absolute Auto 14300 /uL (1500-7000); Neutrophils Percent Auto 90.7 % (50-75); Platelet Count 105 X10^3/uL (150-400); Red Blood Cell Count 3.76 X10^6/uL (4.5-5.9); Red Cell Distribution Width 13.2 % (11.6-14.8); White Blood Cell Count 15.7 X10^3/uL (4.5-11.0)
[2024-08-16 05:31] LABS: Erythrocyte Sedimentation Rate 80 MM/HR (0-15)
[2024-08-16 05:40] LABS: Creatine Kinase 177 U/L (55-170)
[2024-08-16 05:41] LABS: Alanine Aminotransferase 23 IU/L (<50); Alkaline Phosphatase 61 U/L (38-126); Aspartate Aminotransferase 35 IU/L (17-59); Bilirubin Total 0.7 mg/dL (0.2-1.3); Blood Urea Nitrogen 19 mg/dL (9-20); Calcium 8.1 mg/dL (8.4-10.2); Carbon Dioxide 20 mmol/L (22-32); Chloride 105 mmol/L (98-107); Estimated Glomerular Filt Rate 56 mL/min (>60); Globulin 2.9 g/dL (1.7-4.1); Glucose 117 mg/dL (80-110); HEMOLYSIS < 15 (0-50); Magnesium 1.7 mg/dL (1.6-2.3); Potassium 3.4 mmol/L (3.4-5.1); Sodium 133 mmol/L (137-145); Total Protein 5.9 g/dL (6.3-8.2)
[2024-08-16 06:46] LABS: C-Reactive Protein Quant 38.3 mg/dL (<1.0)
[2024-08-16] MEDS: ENOXAPARIN 40 MG/0.4 ML SYRINGE SUBCUT (08:46)
[2024-08-16] MEDS: MAGNESIUM CHLORIDE 64 MG TABLET 128 MG PO (08:47)
[2024-08-16] MEDS: POTASSIUM CHLORIDE 20 MEQ TAB 40 MEQ PO (08:47)
[2024-08-16] MEDS: GABAPENTIN 100 MG CAPSULE PO ×3 (09:39→20:17)
--- NOTE | 2024-08-16 10:33 | CM.DPNOTE ---
Addendum entered by MOHSEN Rose 08/16/24 15:43: per provider, needs two weeks IV amphicilin (stop date 08/29) Q4 2g, [facility]. pt eager to do at home. [employer] faxed initial referal information to Tony at [facility]. kindly agreed to review. per Tony, amipiclin Q4 med can have a pump, that is portable/ambulatory that only needs to be changed once per day. can do through port pt already has unless pt needs port for something else. (p [phone] f [phone]). [employer] met with pt in room, confirms preference is to dc home with home infusions. claims no chemo planned for next two weeks. [employer] answered questions to best of ability. P: hopeful for dc home tomorrow with spouse support and [facility] to follow IV ampiclin for 2 weeks. will continue to follow closely for DCP coordination SL Original Note: DCP note [employer] reviewed EMR Per provider in morning rounds, final repeat blood cultures pending. likely will need IV Amphicilin for 5-7 days, Q4. plans to reach out to [facility] ID provider for final recs when cultures known. if spikes a fever/symptoms worsen pt may need to be transferred out to higher level of care with ID provider in house. pt would prefer to get home infusion with [facility] if needing assisted IV abx, but pt may need to remain in hospital for IV abx anyway. P: remain here for final abx course vs transfer to higher level of care vs dc home with home infusions. will continue to follow closely for DCP recs/preferences MOHSEN Rose
--- NOTE | 2024-08-16 11:00 | PC.NURSE ---
Pt alert and oriented, voices concerns and needs easily. Port patent and intact, IV ABX per orders. Ileostomy and muller patent and intact.
--- NOTE | 2024-08-16 14:42 | P.PN_ITS ---
Subjective Subjective Interval history: 68 year old male admitted with sepsis now found due to E. faecalis bacteremia. Some R groin pain today, but hasn't been up and moving much. Would like to work with PT. Discussed with [facility] ID, recommended 2 weeks IV ampicillin followed by 2 weeks of augmentin. Ideally would follow up with ID there prior to completion of antibiotics. Can likely discharge home on ampicillin with infusion solutions. Faxing referral today to schedule there. Has surgeon follow up next week as well next week. Exam Vital Signs (past 8 hours): - 08/16/24 08:00 08/16/24 12:00 Temperature 99.5 F 99.7 F H Pulse Rate 74 77 Respiratory Rate 20 20 Blood Pressure 113/65 122/70 Pulse Oximetry 97 98 Oxygen Flow Rate 0 0 Oxygen Delivery Method Room Air Oxygen Flow Rate 0 Narrative Exam Narrative: GENERAL: This is a well-nourished, well-developed patient, in no apparent distress. HEAD: Atraumatic. Normocephalic. No temporal or scalp tenderness. EYES: Pupils equal round and reactive. Extraocular motions intact. No scleral icterus. No injection or drainage. ENT: Mucous membranes pink and moist. NECK: Trachea midline. No JVD, bruits or lymphadenopathy. Supple, nontender, no meningeal signs. CARDIOVASCULAR: Regular tachycardic rhythm without murmurs, gallops, or rubs. R chest port without erythema, appears clean. RESPIRATORY: Clear to auscultation. GASTROINTESTINAL: Abdomen soft, non-tender, nondistended. Right-sided ileostomy in place with liquid brown stool in bag. EXTREMITIES: No clubbing, cyanosis, or edema. NEUROLOGIC: Alert, oriented, speech fluent, full upper and lower motor strength, no focal deficits evident. DERMATOLOGIC: No rashes or skin lesions. Objective Imaging CT scan - abdomen: Radiologist's impression: [address] [address] [address] Scan Report Signed Patient: Sergio Byrne MR#: [id number] : 1955 Acct:[id number] Age/Sex: 68 / M Date of Service: 08/14/24 Loc: ED Accession Number: [id number] Procedure: CT abdomen pelvis w con Ordering Provider: Echo Campa D.O. PROCEDURE: CT ABDOMEN PELVIS W CON INDICATIONS: fever, recent ileostomy and rectal cancer 08/02 TECHNIQUE: After the administration of intravenous contrast, axial sections acquired from the lung bases to the pubic symphysis. Coronal and sagittal reformats were performed. For radiation dose reduction, the following was used: automated exposure control, adjustment of mA and/or kV according to patient size. COMPARISON: [facility], CT, CT CHEST ABD PEL W CON, 03/07/2024, 9:35. FINDINGS: Image quality: Diagnostic. Lower Chest: See separate dictated CT chest ABDOMEN: Liver: No solid mass. Gallbladder: Mildly contracted gallbladder without gallstones or wall thickening. Biliary ducts: No biliary dilation. Pancreas: No ductal dilation. Spleen: Size is within normal limits. Adrenal Glands: No adrenal nodules. Kidneys and Ureters: Moderately heterogeneous enhancement of the right renal parenchyma with areas of hypoenhancement within the right posterior wall and lower lobes. Mild proximal right hydronephrosis with questionable ureteral hyperenhancement. Perinephric fat stranding, right greater than left. Stomach and Bowel: No obstruction. Mild wall thickening of the rectum extending through the sigmoid colon may be exaggerated by underdistention.. Postsurgical changes of diverting ileostomy with bout bowel mass no asses in the rectal vault. Normal appendix. Peritoneum: Mild edema near the surgical changes in the rectum with mild free fluid without peripheral enhancement to suggest organized abscess. Ventral Wall: No significant ventral hernia. Abdominal Nodes: No retroperitoneal or mesenteric adenopathy by size criteria. Vessels: Aorta and inferior vena cava are normal in size. PELVIS: Pelvic Organs: Unremarkable. Bladder: No bladder wall thickening, accounting for underdistention. Pelvic Nodes: No enlarged lymph nodes. Miscellaneous: No inguinal hernias are seen. Bones: No aggressive osseous abnormality. Lytic lesion within the left iliac wing, unchanged IMPRESSION: * Heterogeneous enhancement of the right kidney is concerning for ascending infection, correlate with UA. * Postsurgical changes of the rectum with mild residual wall thickening likely status post radiation treatment changes. * Unchanged pericaval and periaortic subcentimeter lymph nodes without kelton lymphadenopathy. * Free fluid within the pelvis near the anastomosis likely postsurgical changes without peripheral enhancement to suggest organized abscess. Labs 08/16/24 04:40 08/16/24 04:40 Labs: Laboratory Results - last 24 hr 08/14/24 08/16/24 11:40 04:40 WBC 15.7 H RBC 3.76 L Hgb 12.8 L Hct 36.9 L MCV 98.3 MCH 34.2 H MCHC 34.8 RDW 13.2 Plt Count 105 L Neut % (Auto) 90.7 H Lymph % (Auto) 2.9 L [place] % (Auto) 6.1 Eos % (Auto) 0.2 L Baso % (Auto) 0.1 Neut # (Auto) 36812 H Lymph # (Auto) 500 L [place] # (Auto) 1000 H Eos # (Auto) 0 Baso # (Auto) 0 Smear Path Review ESR 80 H Sodium 133 L Potassium 3.4 Chloride 105 Carbon Dioxide 20 L BUN 19 Creatinine 1.36 H Estimated GFR 56 L BUN/Creatinine Ratio 14.0 Glucose 117 H Calcium 8.1 L Magnesium 1.7 Total Bilirubin 0.7 AST 35 ALT 23 Alkaline Phosphatase 61 Total Creatine Kinase 177 H C-Reactive Protein 38.3 H Total Protein 5.9 L Albumin 3.0 L Globulin 2.9 Albumin/Globulin Ratio 1.0 [facility] Medical History Measles (~1959) Platelet disorder (~2011) Rectal cancer Right knee pain (~2016) Rosacea Surgical History (Updated 08/14/24 @ 17:30 by Echo Campa DO) Anesthesia History of colonoscopy (~2019) Family History Father Cancer Mother Stroke Brother History of heart disease Social History household members: spouse Smoking Status: Never smoker Assessment & Plan Assessment & Plan narrative: 1. Sepsis secondary to E. faecalis bacteremia, acute, present on admission. Unclear association with recent Low Anterior Resection. - repeat blood cultures obtained 08/15 with no current growth, can discharge once negative for 48 hours. - sources for bacteremia include urinary (E faecalis may raise suspicion for fistulous connection), bacteremia due to recent LAR at OSH, less likely anastaomtic leak (less likely based on imaging data thus far), less likely port site infection. No evidence for any other these more major issues on CT imaging. - changed antibiotics to ampicillin and vancomycin for E. faecalis targeted therapy, was on zosyn initially for >24 hours. Vancomycin discontinued 08/16 with blood cultures showing ampicillin sensitivity. - discussed today with infectious disease at [facility] (Dr. Langston) given recent surgery there and no infectious disease provider associated with [facility]. Recommended 2 weeks of IV ampicillin 2g q4 hr, followed by 2 weeks of augmentin and outpatient follow up with infectious disease clinic at [facility]. Recommended CBC, CMP, ESR. Ideally follow up within 2 weeks. Will fax referral, clinic will call to schedule with patient. - TTE unremarkable with no evidence for vegetation. - follow cr with BMP, slightly improving, can stop IV fluids today. 2. Acute metabolic encephalopathy, CANDELARIO, thrombocytopenia due to #1 - see above management. 3. Rectal cancer, status post recent ileostomy. No complications evident on imaging. ER reviewed his case with his primary surgery team. 4. CLL with history of thrombocytopenia. - WBC was recently 9.4 2 weeks ago at OSH per chart review. - Marked leukocytosis likely due to bacteremia. Plt was 74 2 weeks ago, essentially stable today in the low 100s. - continue home prednisone 20 mg daily. 5. Hypertension. Holding home lisinopril, BP normal today. Monitor blood pressures. DVT prophylaxis: Subcutaneous Lovenox, Code status: Full code. His Katie is present at bedside and is his surrogate decision maker Time-Based Coding :: [TOTAL MINUTES] spent with patient and on the chart (including review of chart, obtaining history, exam, reviewing outside data, placing orders, documenting exam and treatment plan, and counseling patient) on [DATE].
[2024-08-16] MEDS: predniSONE 20 MG TABLET PO (15:00)
--- NOTE | 2024-08-16 17:06 | OT.IPNOTE ---
Attempted OT eval and pt refusing and states would like to do it tomorrow.
[2024-08-17 00:13] VITALS: BP 113/64; PULSE 52; RESP 16; TEMP 36.1; O2SAT 97
[2024-08-17] MEDS: AMPICILLIN 2,000 MG in SODIUM CHLORIDE 0.9% 100 ML 200 MG IV ×2 (04:55→08:54)
[2024-08-17 05:48] LABS: Add Manual Diff / Slide Review NO; Basophils Absolute Auto 0 /uL (0-100); Basophils Percent Auto 0.1 % (0-2); Eosinophils Absolute Auto 0 /uL (0-450); Eosinophils Percent Auto 0.1 % (2-4); Hematocrit 37.6 % (41-53); Hemoglobin 13.1 g/dL (13.5-17.5); Lymphocytes Absolute Auto 700 /uL (1100-4500); Lymphocytes Percent Auto 5.9 % (25-40); Mean Corpuscular HGB Conc 34.9 % (30-36); Mean Corpuscular Hemoglobin 34.3 PG (26-34); Mean Corpuscular Volume 98.3 fL (80-100); Monocytes Absolute Auto 500 /uL (0-900); Monocytes Percent Auto 4.3 % (3-14); Neutrophils Absolute Auto 10800 /uL (1500-7000); Neutrophils Percent Auto 89.6 % (50-75); Platelet Count 121 X10^3/uL (150-400); Red Blood Cell Count 3.83 X10^6/uL (4.5-5.9); Red Cell Distribution Width 13.4 % (11.6-14.8); White Blood Cell Count 12.1 X10^3/uL (4.5-11.0)
[2024-08-17 06:00] LABS: Alanine Aminotransferase 33 IU/L (<50); Albumin 3.5 g/dL (3.5-5.0); Albumin Globulin Ratio 1.1 (1.0-2.8); Alkaline Phosphatase 69 U/L (38-126); Aspartate Aminotransferase 40 IU/L (17-59); BUN Creatinine Ratio 17.9 (6-22); Bilirubin Total 0.8 mg/dL (0.2-1.3); Blood Urea Nitrogen 21 mg/dL (9-20); Calcium 8.9 mg/dL (8.4-10.2); Carbon Dioxide 23 mmol/L (22-32); Chloride 106 mmol/L (98-107); Estimated Glomerular Filt Rate > 60 mL/min (>60); Globulin 3.3 g/dL (1.7-4.1); Glucose 115 mg/dL (70-99); HEMOLYSIS < 15 (0-50); Magnesium 2.2 mg/dL (1.6-2.3); Potassium 4.1 mmol/L (3.4-5.1); Sodium 136 mmol/L (137-145); Total Protein 6.8 g/dL (6.3-8.2)
[2024-08-17] MEDS: GABAPENTIN 100 MG CAPSULE PO (08:54)
[2024-08-17] MEDS: predniSONE 20 MG TABLET PO (08:54)
[2024-08-17] MEDS: ENOXAPARIN 40 MG/0.4 ML SYRINGE SUBCUT (08:55)
[2024-08-17 09:00] VITALS: BP 121/73; PULSE 93; RESP 16; TEMP 37.1; O2SAT 100
--- NOTE | 2024-08-17 10:39 | OT.IPNOTE ---
Pt states has been independent in the room for ADL and mobility needs and therefore no OT needs. Able to encourage pt to follow stress management and mindfulness for his well being. Discharge pt from OT services.
--- NOTE | 2024-08-17 11:31 | CM.DPNOTE ---
DCP note ENGINEERING DIRECTOR reviewed EMR worked with Tony from [facility], Dr. Rocha, bedside RN, pt, and spouse multiple times throughout the day. Per Tony, unable to start inf until 08/18 11am., pt eager to dc today. Per Aj, pt will get one dose of Dapto today and will resume ampicillin tomorrow. pt and spouse in agreement. Pt to f/u with Dr. Bashir Johnson at [facility] already has an OP appt scheduled. ENGINEERING DIRECTOR to fax dc summary to [facility] when available. P: dc today with spouse support and [facility] f/u SOC 08/18. f/u with [facility]. CM team will continue to follow as needed MOHSEN Rose
[2024-08-17] MEDS: SODIUM CHLORIDE 0.9% IV (12:46)
[2024-08-17] MEDS: DAPTOMYCIN IV (12:46)
--- NOTE | 2024-08-17 13:16 | PT-IP ANOTE ---
PT eval order received. EMR reviewed. Checked on pt and pt refused PT. pt stated that he has a lot of things going on and does not want PT. stated that he has been walking and moving in his room fine. Checked with nurse and stated that pt is independent with mobility in his room and aware of pt's refusal of PT. will d/c PT eval order.
--- NOTE | 2024-08-17 13:18 | P.DS_ITS ---
History of Present Illness History of Present Illness Chief complaint: Issues after surgery Narrative: From H&P: 68-year-old man with recently diagnosed rectal cancer, status post neoadjuvant chemotherapy times 12 rounds last administered 2 months ago followed by ileostomy on 08/02/[address] [place]ks [place] [facility] [place] intermittent fevers over the past few days. His is described confusion as well, and feels he is mildly confused presently on interview in the emergency department. [place] is febrile[place] [id number], in otherwise denies nausea, vomiting, abdominal pain or problems with his ileostomy, with normal stool output. He has a mild rash on his inner thigh were a Emmanuel catheter was taped recently. He has been on Lovenox injections for postoperative DVT prophylaxis. Urinalysis in the emergency department showed findings consistent with urinary infection and he was administered IV Zosyn, and admitted for further management and evaluation. Discharge Providers Provider Date of admission: 08/14/24 16:55 Discharge Date: 08/17/24 Primary care physician: Elma Lynne MD Consults: 08/16/24 13:48 Consult to Occupational Therapy Evaluate & Treat Comment: Physician Instructions: Evaluate and treat Consult to Physical Therapy Evaluate & Treat Comment: Physician Instructions: Evaluate and Treat Discharge provider: Gerson Rocha MD Summary Hospital Course Discharge Diagnosis: 1. Sepsis secondary to E. faecalis bacteremia, acute, present on admission. Unclear association with recent Low Anterior Resection. Resolved. - repeat blood cultures obtained 08/15 with no current growth, can discharge once negative for 48 hours. - sources for bacteremia include urinary (E faecalis may raise suspicion for fistulous connection), bacteremia due to recent LAR at OSH, less likely anastaomtic leak (less likely based on imaging data thus far), less likely port site infection. No evidence for any other these more major issues on CT imaging. - changed antibiotics to ampicillin and vancomycin for E. faecalis targeted therapy, was on zosyn initially for >24 hours. Vancomycin discontinued 08/16 with blood cultures showing ampicillin sensitivity. - discussed today with infectious disease at [facility] (Dr. Langston) given recent surgery there and no infectious disease provider associated with [facility]. Recommended 2 weeks of IV ampicillin 2g q4 hr, followed by 2 weeks of augmentin and outpatient follow up with infectious disease clinic at [facility]. Recommended CBC, CMP, ESR. Ideally follow up within 2 weeks. Will fax referral, clinic will call to schedule with patient. - TTE unremarkable with no evidence for vegetation. - follow cr with BMP, slightly improving, can stop IV fluids today. 2. Acute septic encephalopathy, CANDELARIO, thrombocytopenia due to #1. Resolved. - see above management. 3. Rectal cancer, status post recent ileostomy. No complications evident on imaging. ER reviewed his case with his primary surgery team. Stable. 4. CLL with history of thrombocytopenia. Stable. - WBC was recently 9.4 2 weeks ago at OSH per chart review. - Marked leukocytosis likely due to bacteremia. Plt was 74 2 weeks ago, essentially stable today in the low 100s. - continue home prednisone 20 mg daily. 5. Hypertension. Holding home lisinopril, BP normal today. Monitor blood pressures. Stable. Hospital Course: The patient was admitted with evidence of sepsis. He was found to have bacteremia as noted above. The patient was discussed with the Infectious Disease, recommendations for ampicillin as noted above. On the day of discharge, the patient was feeling much better. [facility] was not able to open until 08/18 at 10:00 a.m.. Sensitivities were reviewed to the Enterococcus with daptomycin having a leilani of less than 2. 8 milligrams/kilogram of daptomycin was given prior to discharge and the patient will resume his ampicillin q.4 hours tomorrow morning. The patient was given the option of continuing ampicillin in the hospital till tomorrow morning but strongly desired to leave the hospital on the day of discharge. Status at Discharge Cognitive/behavioral status at discharge: oriented Functional status at discharge: independent ambulation Overall status at discharge: patient is back to baseline Time Spent with Patient Time spent: Greater than 30 minutes Exam Vital Signs (past 8 hours): - 08/17/24 09:00 Temperature 98.7 F Pulse Rate 93 H Respiratory Rate 16 Blood Pressure 121/73 Pulse Oximetry 100 Oxygen Flow Rate 0 Oxygen Delivery Method Room Air Oxygen Flow Rate 0 Narrative Exam Narrative: NAD, alert and oriented. Fluent speech. Lungs are clear, normal rate and effort. Heart is regular, no murmur gallop or rub. Abdomen is soft, non distended. Extremities are free of edema. Right chest port Objective ECG Impression: Intervals T[place] Rate: 102 P: 41 SC: 156 QRS: 29 QRSD: 86 T: 12 QT: 296 QTc: 385 Interpretive Statements Sinus tachycardia Imaging Multiple studies:: Radiologist's impression: Echo: . The left ventricular contractility is borderline. Estimate ejection fraction is 50 to 55% with paradoxical septal motion consistent with a bundle branch block. No LVH. Normal diastolic function. 2. The right ventricular contractility is normal. 3. Mild right ventricular enlargement. The left atrium is also mildly dilated. All other cardiac chambers are of normal size. 4. Mild mitral regurgitation noted. 5. No obvious valvular vegetations appreciated. 6. No obvious intracardiac shunts noted. 7. No obvious intracardiac masses nor thrombi. 8. No hemodynamically significant pericardial effusion. 8. Low right-sided filling pressures. Conclusion: Low normal left ventricular systolic function with mild mitral regurgitation. No obvious valvular vegetations noted. Chest CTA: No pulmonary embolus. Mediastinal lymphadenopathy, likely reactive however the setting of known primary cannot exclude metastatic disease. See separately dictated CT abdomen pelvis Abdomen pelvis CT: * Heterogeneous enhancement of the right kidney is concerning for ascending infection, correlate with UA. * Postsurgical changes of the rectum with mild residual wall thickening likely status post radiation treatment changes. * Unchanged pericaval and periaortic subcentimeter lymph nodes without kelton lymphadenopathy. * Free fluid within the pelvis near the anastomosis likely postsurgical changes without peripheral enhancement to suggest organized abscess. Chest x-ray: No acute cardiopulmonary abnormality is seen. Labs 08/17/24 05:29 08/17/24 05:29 Labs: Laboratory Results - last 24 hr 08/14/24 08/17/24 11:40 05:29 WBC 12.1 H RBC 3.83 L Hgb 13.1 L Hct 37.6 L MCV 98.3 MCH 34.3 H MCHC 34.9 RDW 13.4 Plt Count 121 L Neut % (Auto) 89.6 H Lymph % (Auto) 5.9 L Yancey % (Auto) 4.3 Eos % (Auto) 0.1 L Baso % (Auto) 0.1 Neut # (Auto) 97108 H Lymph # (Auto) 700 L Yancey # (Auto) 500 Eos # (Auto) 0 Baso # (Auto) 0 Smear Path Review Sodium 136 L Potassium 4.1 Chloride 106 Carbon Dioxide 23 BUN 21 H Creatinine 1.17 Estimated GFR > 60 BUN/Creatinine Ratio 17.9 Glucose 115 H Calcium 8.9 Magnesium 2.2 Total Bilirubin 0.8 AST 40 ALT 33 Alkaline Phosphatase 69 Total Protein 6.8 Albumin 3.5 Globulin 3.3 Albumin/Globulin Ratio 1.1 PFSH Medical History Rectal cancer Rosacea Right knee pain (~2017) Measles (~1960) Platelet disorder (~2011) Surgical History Anesthesia History of colonoscopy (~2019) Family History Father Cancer Mother Stroke Brother History of heart disease Social History household members: spouse Smoking Status: Never smoker Discharge Assessment & Plan Assessment and Plan Assessment: 1. E. faecalis bacteremia, present on admission and improved. Plan of Treatment: We will complete a 14 day course of ampicillin 2 g q.4 hours. [facility] will be able to initiate therapy tomorrow in the morning. The patient has a dose of daptomycin which should cover him for 24 hours. He will follow up with Infectious Disease in [place] as well as his general surgeon as noted. Discharge Plan Discharge Plan Patient Disposition: Home Health Service Provider Discharge Comment: Stable for discharge home, we will be covered with daptomycin for the next 24 hours and then resume ampicillin on August 18 at 10:00 a.m. with infusion solutions. Discharge orders & Medications Prescriptions: New ampicillin sodium 2 gram Recon Soln 2,000 mg IV Q4H 12 Days Qty: 10 0RF Continued doxycycline hyclate 50 mg capsule 50 mg PO DAILY Qty: 5 2RF lisinopril 20 mg tablet 20 mg PO DAILY Qty: 90 0RF ketoconazole 2 % shampoo 1 applic topical 2XW Qty: 120 1RF gabapentin 100 mg capsule 100 mg PO 3XD prednisone 10 mg tablet 20 mg PO DAILY Follow up/Referrals: Elma Lynne MD [Primary Care Provider] - Other Ambulatory Orders: Referral to: (Schedule) Timeframe: 2 Weeks Location: Determined by Patient Ordered By: Shady [place] Diet/Activity/Treatments Diet: Regular Activity: As tolerated. Visit Report/Discharge Packet Instructions: DI for Sepsis -- Adult, Ampicillin Stand Alone Forms: Patient Portal/API, Stroke Signs & Symptoms Discharge Data Primary Care Provider: Elma Lynne
--- NOTE | 2024-08-17 13:48 | PC.NURSE ---
Pt is dressed and ready for discharge home with Spouse. Port-a-cath has been de-accessed per MD order. Went over d/c instructions with Pt and Spouse-discussed d/c meds, time of last dose, reviewed stroke education, s/s of infection, drinking plenty of fluids to prevent constipation or dehydration, coming back to the ER if sepsis symptoms return, and follow up. Pt and Spouse denied further questions and Pt was taken out via w/c by [employer] to POV with Spouse and all belongings.
== END 2024-08-17 13:59 | disposition home or self-care (01) | DRG 871 ==
LOC: ED 12:24 → AC 16:55
PROVIDERS: Internal Medicine; Admitting Provider Internal Medicine; Emergency Provider Emergency Medicine; PCP Internal Medicine; Referring Provider Emergency Medicine; Visit Provider Internal Medicine
DX: A41.89 Other specified sepsis (principal); G93.41 Metabolic encephalopathy; N17.9 Acute kidney failure, unspecified; C91.10 Chronic lymphocytic leukemia of B-cell type not having achieved remission; N39.0 Urinary tract infection, site not specified; I10 Essential (primary) hypertension; D69.6 Thrombocytopenia, unspecified; R65.20 Severe sepsis without septic shock; B95.2 Enterococcus as the cause of diseases classified elsewhere; B96.89 Other specified bacterial agents as the cause of diseases classified elsewhere; Z93.2 Ileostomy status; Z79.52 Long term (current) use of systemic steroids; Z85.048 Personal history of other malignant neoplasm of rectum, rectosigmoid junction, and anus; Z95.828 Presence of other vascular implants and grafts
CPT/HCPCS: 0241U; 36415; 36591; 51798; 71045; 71275; 74177; 80048; 80053; 81003; 81015; 82550; 83605; 83690; 83735; 84145; 85007; 85025; 85610; 85651; 85730; 86140; 87040; 87077; 87086; 87154; 87186; 87507; 93005; 93010; 93306; 96361; 96365; 96367; 96368; 96375; 99285; 99291; J0290; J0878; J1650; J2405; J2543; Q9967

== ENCOUNTER → 2024-08-24 10:05 | Outpatient (CLI) | payer MEDICARE, SELFPAY ==
[2024-08-14 20:31] VITALS: BMI 26.4
== END ==
LOC: WC 10:06
PROVIDERS: PCP Internal Medicine; Referring Provider Internal Medicine; Visit Provider Surgery
DX: K94.09 Other complications of colostomy (principal)
CPT/HCPCS: 99203; 99213

== ENCOUNTER 2024-09-22 20:53 | Emergency (ER) | payer MEDICARE, SELFPAY ==
[2024-08-14 20:31] VITALS: BMI 26.4
[2024-09-22 21:06] VITALS: BP 111/66; PULSE 96; RESP 16; TEMP 37.5; O2SAT 96; BMI 25.4
--- NOTE | 2024-09-22 21:21 | PC.NURSE ---
During triage, pt and stated that they may not want to stay for full workup. Pt states he feels fine now and prefers to go home. Case discussed with Dr Workman including vital signs, response to tylenol, recent hospitalization, and lack of current symptoms. Pt/ offered full sepsis workup; they declined. They plan to follow-up with PMD tomorrow or return later for worsening symptoms. Pt left without being seen.
== END 2024-09-22 21:26 | disposition left against medical advice (07) ==
PROVIDERS: Emergency Provider Emergency Medicine; PCP Internal Medicine
CPT/HCPCS: 99281